=== PATIENT | male | born 1945 | race Caucasian/White ===

== ENCOUNTER 2016-09-27 11:23 | Inpatient (IN) | payer MEDICARE ==
[~2016-09-27] VITALS: Ht 172.7 cm; Wt 88.5 kg
[~2016-09-27 11:23] MED LIST: BAYER CHEWABLE81 MG PO; BENZONATATE200 MG PO; FUROSEMIDE20 MG PO; HYDROCODONE-APA1 TAB PO; K-DUR20 MEQ PO; LIDODERM 5 %1 PATCH TRANSDERM; METOPROLOL TART50 MG PO; MUCINEX DM ER1 EAC1 PO; NORVASC2.5 MG PO; OMEPRAZOLE40 MG PO; PROAIR HFA8.5 GM INH; SYNTHROID25 MCG PO; ULTRAM50 MG PO; ZITHROMAX 500M500 MG PO
[2016-09-27 12:37] LABS: BASOPHILS 0.1 % (0.0-2.0); EOSINOPHILS 1.1 % (0-7); HEMATOCRIT 43.2 % (42.0-54.0); HEMOGLOBIN 14.4 g/dL (13.5-17.5); IMMATURE GRANULOCYTES 0.2 % (0-5); LYMPHOCYTES 15.9 % (15-50); MCH 34.7 pg (26.0-34.0); MCHC 33.3 g/dL (31.0-37.0); MCV 104.1 fL (80.0-100.0); MEAN PLATELET VOLUME 11.7 fL (7.4-10.4); MONOCYTES 7.8 % (2-11); NEUTROPHILS 74.9 % (40-80); RBC 4.15 10x6/uL (4.20-6.10); RDW 11.9 % (11.5-14.5); WBC 8.2 10x3/uL (4.8-10.8)
[2016-09-27 12:38] LABS: PLATELET COUNT 110 10x3/uL (130-400)
[2016-09-27 13:00] LABS: ALBUMIN 2.8 g/dL (3.4-5.0); ALKALINE PHOSPHATASE 100 U/L (46-116); ALT (SGPT) 24 U/L (10-68); BILIRUBIN - TOTAL 0.48 mg/dL (0.2-1.3); CALC OSMOLALITY 280 mosm/kg (275-300); CALCIUM 9.2 mg/dL (8.5-10.1); CHLORIDE - SERUM 102 mmol/L (98-107); CREATININE - SERUM 0.9 mg/dL (0.6-1.3); GLUCOSE 116 mg/dL (74-106); POTASSIUM - SERUM 4.3 mmol/L (3.5-5.1); PROTEIN - SERUM 7.3 g/dL (6.4-8.2); SODIUM 139 mmol/L (136-145); UREA NITROGEN 18 mg/dL (7-18); eGFR NON AFRICAN AMERICAN 88 mL/min (90-120)
[2016-09-27 13:32] LABS: APPEARANCE HAZY (CLEAR); BILIRUBIN NEGATIVE (NEGATIVE); COLOR YELLOW (YELLOW); GLUCOSE NEGATIVE (NEGATIVE); KETONE NEGATIVE (NEGATIVE); LEUKOCYTE ESTERASE 1+ (NEGATIVE); NITRITE NEGATIVE (NEGATIVE); PROTEIN NEGATIVE (NEGATIVE); UROBILINOGEN NORMAL (NORMAL)
[2016-09-27 13:33] LABS: BACTERIA FEW /hpf (NONE SEEN); EPITHELIAL CELLS 0-5 /hpf (0-5); RED CELLS - URINE 0-5 /hpf (0-5)
[2016-09-27 14:14] LABS: UDS - AMPHET NEGATIVE QUAL (NEGATIVE); UDS - BARB NEGATIVE QUAL (NEGATIVE); UDS - BENZO NEGATIVE QUAL (NEGATIVE); UDS - COCAINE NEGATIVE QUAL (NEGATIVE); UDS - METH NEGATIVE QUAL (NEGATIVE); UDS - OPIATE POSITIVE QUAL (NEGATIVE); UDS - PCP NEGATIVE QUAL (NEGATIVE); UDS - THC NEGATIVE QUAL (NEGATIVE)
[2016-09-27 15:35] LABS: BASOPHILS 0.2 % (0.0-2.0); EOSINOPHILS 1.2 % (0-7); HEMATOCRIT 39.5 % (42.0-54.0); HEMOGLOBIN 12.4 g/dL (13.5-17.5); IMMATURE GRANULOCYTES 0.2 % (0-5); MCHC 31.4 g/dL (31.0-37.0); MCV 92.5 fL (80.0-100.0); MEAN PLATELET VOLUME 11.4 fL (7.4-10.4); MONOCYTES 9.5 % (2-11); NEUTROPHILS 74.9 % (40-80); PLATELET COUNT 79 10x3/uL (130-400); RBC 4.27 10x6/uL (4.20-6.10); RDW 15.9 % (11.5-14.5); WBC 5.9 10x3/uL (4.8-10.8)
[2016-09-27 15:59] LABS: PLATELET ESTIMATE DECREASED
[2016-09-27] MEDS ORDERED: HYDROCODONE-APA1 TAB PO (23:37)
--- NOTE | 2016-09-27 23:53 | NUR ---
NORCO 1 TAB GIVEN FOR C/O PAIN TO BACK AND LOWER EXTREMITIES.
[2016-09-28] VITALS: BP 139/68
--- NOTE | 2016-09-28 02:33 | NUR ---
RESTING WITH EYES CLOSED, RESPERATIONS EVEN, NO S/S DISTRESS NOTED.
[2016-09-28 03:03] VITALS: BP 142/71; BMI 29.7
--- NOTE | 2016-09-28 04:31 | NUR ---
FRESH ICE WATE GIVEN AT PT REQUEST.
--- NOTE | 2016-09-28 05:48 | NUR ---
NORCO 1 TAB GIVEN FOR C/O PAIN.
[2016-09-28 05:51] LABS: BASOPHILS 0.2 % (0.0-2.0); EOSINOPHILS 1.6 % (0-7); IMMATURE GRANULOCYTES 0.2 % (0-5); LYMPHOCYTES 15.2 % (15-50); MCH 28.5 pg (26.0-34.0); MCHC 30.8 g/dL (31.0-37.0); MCV 92.6 fL (80.0-100.0); MEAN PLATELET VOLUME 11.7 fL (7.4-10.4); MONOCYTES 10.6 % (2-11); NEUTROPHILS 72.2 % (40-80); PLATELET COUNT 73 10x3/uL (130-400); RBC 4.21 10x6/uL (4.20-6.10); RDW 15.4 % (11.5-14.5); WBC 4.9 10x3/uL (4.8-10.8)
[2016-09-28 05:59] LABS: INR 1.11 (0.85-1.17); PROTIME 14.2 SECONDS (11.6-15.0)
[2016-09-28 06:23] LABS: ALBUMIN 2.9 g/dL (3.4-5.0); ANION GAP 6.4 mmol/L (8-16); BILIRUBIN - TOTAL 0.7 mg/dL (0.2-1.3); C-REACTIVE PROTEIN 2.2 mg/dL (0.0-0.9); CALCIUM 8.1 mg/dL (8.5-10.1); CARBON DIOXIDE 38.1 mmol/L (21.0-32.0); CREATININE - SERUM 1.9 mg/dL (0.6-1.3); POTASSIUM - SERUM 3.5 mmol/L (3.5-5.1); PROTEIN - SERUM 6.2 g/dL (6.4-8.2)
[2016-09-28] MEDS ORDERED: MYRBETRIQ25 MG PO (06:31)
[2016-09-28 07:46] VITALS: BP 132/65
[2016-09-28 11:37] VITALS: BP 110/68
--- NOTE | 2016-09-28 12:51 | NUR ---
PTS NELSON CATHETER LEAKING. CLEANSED PT AND CHANGED OUT LINENS. PT STAT LOCK WAS SOILED. REPLACED AND SECURED IT TO HIS L.INNER THIGH. WILL CONTINUE TO MONITER FOR LEAKAGE. NO FURTHER NEEDS AT THIS TIME. WILL CTM.
[2016-09-28 13:53] VITALS: Ht 172.7 cm; Wt 88.5 kg
--- NOTE | 2016-09-28 14:16 | NUR ---
PT LYING BACK IN BED RESTING QUIETLY. ABOUT TO GET UP TO AMBULATE WITH PHYSICAL THERAPY. PT REQUESTED AND WAS PROVIDED WITH PRN PAIN MEDICATION FOR CHRONIC BACK PAIN AND GENERALIZED ALL OVER PAIN. PT VOICED THANKS. NO FURTHER NEEDS AT THIS TIME. WILL CTM.
[2016-09-28 15:26] VITALS: BP 125/71
--- NOTE | 2016-09-28 18:51 | NUR ---
PT RESTING IN BED QUIETLY WITH EYES CLOSED. RR NONLABORED ON RA. PT DENIES ANY CURRENT PAIN OR NEEDS AT THIS TIME. CL IN REACH. WILL CTM.
[2016-09-28 19:00] VITALS: BP 149/71
--- NOTE | 2016-09-28 20:15 | NUR ---
PT AWAKE, ALERT, ORIENTED, DENIES ANY NEEDS. CONTINUE TO MONITOR CLOSELY. BED LOW, CALL LIGHT IN REACH, SIDE RAILS X 2, HOB 20 DEGREES. PULLED PT UP IN BED REQUESTED.
[2016-09-29] VITALS: BP 138/69
[2016-09-29 04:00] VITALS: BP 142/71
[2016-09-29 08:02] VITALS: BP 146/75
[2016-09-29 10:51] LABS: BASOPHILS 0 % (0.0-2.0); EOSINOPHILS 0.7 % (0-7); HEMATOCRIT 41.3 % (42.0-54.0); HEMOGLOBIN 12.9 g/dL (13.5-17.5); IMMATURE GRANULOCYTES 0.2 % (0-5); LYMPHOCYTES 8.3 % (15-50); MCH 29.2 pg (26.0-34.0); MCHC 31.2 g/dL (31.0-37.0); MCV 93.4 fL (80.0-100.0); MEAN PLATELET VOLUME 10.7 fL (7.4-10.4); MONOCYTES 11.2 % (2-11); NEUTROPHILS 79.6 % (40-80); PLATELET COUNT 83 10x3/uL (130-400); RBC 4.42 10x6/uL (4.20-6.10); RDW 15.6 % (11.5-14.5)
[2016-09-29 11:03] LABS: CALCIUM 8.4 mg/dL (8.5-10.1); CREATININE - SERUM 2.2 mg/dL (0.6-1.3); POTASSIUM - SERUM 3.3 mmol/L (3.5-5.1)
[2016-09-29 11:04] LABS: ANION GAP 8.3 mmol/L (8-16)
[2016-09-29 16:00] VITALS: BP 137/72
--- NOTE | 2016-09-29 19:25 | NUR ---
PT SITTING UP IN BED, LISTENING TO TV. A/O X3. REQUEST A PAIN PILL. C/O GENERALIZED PAIN 03/21. CALL LIGHT WITH IN REACH. WILL CONT. TO MONITOR.
[2016-09-29 20:00] VITALS: BP 115/72
[2016-09-30] VITALS: BP 118/69
--- NOTE | 2016-09-30 00:23 | NUR ---
PT LYING IN BED, EYES CLOSED, RESPIRATIONS EVEN AND UNLABORED. PT IS EASILY ROUSABLE TO VERBAL STIMULI, DENIES ANY NEEDS AT THIS TIME. CONTINUE TO MONITOR CLOSELY. BED LOW, CALL LIGHT IN REACH, SIDE RAILS X 2, HOB 30 DEGREES, BED ALARM ON.
--- NOTE | 2016-09-30 03:41 | NUR ---
PT LYING IN BED ON LEFT SIDE, EYES CLOSED, RESPIRATIONS EVEN AND UNLABORED. CONTINUE TO MONITOR CLOSELY. BED LOW, CALL LIGHT IN REACH, SIDE RAILS X 2, HOB 30 DEGREES.
[2016-09-30 04:00] VITALS: BP 110/65
[2016-09-30 06:08] LABS: BASOPHILS 0.2 % (0.0-2.0); EOSINOPHILS 1.6 % (0-7); HEMATOCRIT 41.9 % (42.0-54.0); HEMOGLOBIN 12.9 g/dL (13.5-17.5); LYMPHOCYTES 14.4 % (15-50); MCH 28.4 pg (26.0-34.0); MCHC 30.8 g/dL (31.0-37.0); MCV 92.3 fL (80.0-100.0); MEAN PLATELET VOLUME 10.9 fL (7.4-10.4); MONOCYTES 11.9 % (2-11); NEUTROPHILS 71.9 % (40-80); PLATELET COUNT 74 10x3/uL (130-400); RBC 4.54 10x6/uL (4.20-6.10); RDW 15.8 % (11.5-14.5); WBC 5.8 10x3/uL (4.8-10.8)
[2016-09-30 06:26] LABS: ANION GAP 7.7 mmol/L (8-16); CALCIUM 8.6 mg/dL (8.5-10.1); CREATININE - SERUM 2.3 mg/dL (0.6-1.3); POTASSIUM - SERUM 3.7 mmol/L (3.5-5.1)
[2016-09-30 08:02] VITALS: BP 111/66
--- NOTE | 2016-09-30 08:25 | NUR ---
PTS NELSON IS LEAKING AND SOILED HIS BED. CLEANED PT UP AND REMOVED NELSON WITH CATHETER BULB FULLY INTACT. PT DOESNT MEET CRITERIA FOR NELSON SO HE WILL NOT BE HAVING ANOTHER ONE REPLACED. PT IS RESTING QUIETLY AND DENIES ANY FURTHER NEEDS AT THIS TIME. CL IN REACH, BED IN LOWEST, SIDE RAILS X2. WILL CTM.
--- NOTE | 2016-09-30 09:30 | NUR ---
PT C/O GENERALIZED PAIN ALL OVER AND IN HIS BACK. REQUESTED AND PROVIDED WITH PRN PAIN MEDICATION. PT HAS VISITOR AT BEDSIDE AND DENIES ANY FURTHER NEEDS. CL IN REACH. WILL CTM.
[2016-09-30 12:14] VITALS: BP 100/60
[2016-09-30] MEDS ORDERED: LEVAQUIN500 MG PO (13:48)
--- NOTE | 2016-09-30 15:52 | NUR ---
Patient Name: AVEL DAVIS Admission Status: ER Accout number: [id number] Admission Date: 09-27-2016 : 1945 Admission Diagnosis:SHORTNESS OF BREATH Attending: ROHINI Current LOS: 3 Anticipated DC Date: 09-30-2016 Planned Disposition: Home with Home Health--[facility] Primary Insurance: [facility] Is the patient Alert and Oriented? Yes * How many steps to enter\exit or inside your home? NONE * PCP DR GAN * Pharmacy [facility] * Preadmission Environment Home with Family * ADLs Partial Dependent * Partial ADLs (Assistance needed) Ambulation Bathing Medication Management * Equipment Bedside Commode Oxygen--HOME PRN USAGE ONLY Rolling Walker Shower Chair Wheelchair * Other Equipment HAND HELD SHOWER NOZEL * List name and contact numbers for known caregivers / representatives who currently or will assist patient after discharge: AMARILYS VALLES AND ZABRINA NAYAK, PT'S SISTERS [phone] * Community resources currently utilized Home Health * Please name any agencies selected above. [facility] * Additional services required to return to the preadmission environment? No * Can the patient safely return to the preadmission environment? Yes * Has this patient been hospitalized within the prior 30 days at any hospital? No Discharge Planning Comments: CM MET WITH PATIENT TO ASSESS DC PLAN/NEEDS. PT STATED HE LIVES AT HOME WITH HIS TWO SISTERS AND THEY ASSIST IN HIS CARE. HE IS LEGALLY BLIND AND STATED HE CAN GET AROUND HIS HOUSE PRETTY WELL. STATED HE MOSTLY USES A ROLLING WALKER WHEN AMBULATING. HIS SISTERS PROVIDE ALL HIS TRANSPORTATION AND WILL DRIVE [place]. PT CURRENTLY HAS HH SERVICES WITH [facility]. HIS HH SERVICES INCLUDE NURSING, PT, OT, ST AND AIDE SERVICES. PT WISHES TO RESUME THOSE HH SERVICES AT [place]. PT VOICED NO NEED FOR ANY DME EQUIPMENT OR SERVICES. DC IMM PRESENTED TO AND EXPLAINED TO PT. PT IS LEGALLY BLIND AND UNABLE TO SIGN, BUT VOICED UNDERSTANDING. CM PLACED CALL TO [facility] TO INFORM OF DC AND FAXED CLINICAL UPDATE TO [facility] TO RESUME HH SERVICES. Barrel Turner: Fabi Adorno, RN
[2016-09-30 16:23] VITALS: BP 124/75
--- NOTE | 2016-09-30 16:42 | NUR ---
Patient Name: AVEL DAVIS Encounter No: [id number] : 1945 Primary Insurance: [employer] Anticipated DC Date: 09-30-2016 Planned Disposition: Home with Home Health External Planned Provider: [facility] DCP follow-up note: JUNIOR PENN SPOKE TO NICK OF [facility], , NOTIFIED OF DISCHARGE HOME TODAY FOR RESUMPTION OF HOME HEALTH CARE. CM FAXED DISCHARGE INFORMATION TO [place] AT [phone]. NO FURTHER DISCHARGE NEEDS IDENTIFIED. Danny Dunlap, CASE MANAGEMENT
--- NOTE | 2016-09-30 17:20 | NUR ---
D/C PTS R.FA PIV WITH JUDIG CDI AND CATHETER TIP FULLY INTACT. REMOVED TELEMETRY. DISCHARGE PAPERS SIGNED AND TEACHING COMPLETED. PT DENIES ANY QUESTIONS OR CONCERNS. CAREGIVER AT BEDSIDE READY FOR TRANSPORT. NO FURTHER NEEDS.
--- NOTE | 2016-10-01 16:40 | EC ---
PATIENT:AVEL DAVIS DATE OF SERVICE: 09/27/16 SEX: M MEDICAL RECORD: [id number] DATE OF : [birth year] LOCATION:D.M2 D.213 AGE OF PATIENT: 71 ADMISSION DATE: 09/27/16 REFERRING PHYSICIAN: INTERPRETING PHYSICIAN: MEHDI NEVAREZ MD ECHOCARDIOGRAM REPORT ECHO CHARGES 4 ECHO COMPLETE CLINICAL DIAGNOSIS: DYSPNEA/CONFUSION HX OF CHF AND HTN ECHOCARDIOGRAPHIC MEASUREMENTS (adult normal given) AC root (d.<3.7cm) 3.7 LV Septum d (<1.2 cm> 1.4 Valve Excursion 1.7 LV Septum (systole) 1.5 Left Atria (s.<4.0cm> 4.0 LVPW d(<1.2cm) 1.5 RV (d.<2.3cm) 3.2 LVPW (sytole) 1.7 LV diastole(<5.6CM) 5.2 MV E-F(>70mm/sec) LV systole 3.4 LVOT Diameter 1.8 MV exc.(>10mm) 2.0 Est.ejection fraction (50-75%) Pericardial Effusion N DOPPLER: LVIT A 90.0 E 103 LA RVSP 33 LVOT 112 AOP1/2T Asc. Ao 209 RVOT 90 RA PA 156 AV Gradient Peak 17.41 AV Mean 7.68 AV Area 1.1 MV Gradient Peak 5.0 MV Mean 2.0 MV Area COMMENTS: Fast Food Cook: Flakito CARLOS Produce Specialist:Lelo Nevarez TAPE# PACS DATE OF SERVICE: 09/28/2016 Echocardiogram FINDINGS: 1. Left ventricular chamber size is within normal limits. Left ventricular systolic function is normal. Overall ejection fraction estimated at 55%. 2. Left atrium, left atrium is upper limits of normal at 4.0 cm. Right atrium and right ventricular chamber sizes are moderately dilated. 3. Valvular structures: Aortic valve demonstrates mild calcific aortic ECHOCARDIOGRAM REPORT [id number] AVEL DAVIS stenosis. Valve area calculates to 1.1 cm-squared and there is a gradient of 17 mm across the valve. The remaining valvular structures have normal structure and motion. 3. Doppler interrogation elsewise reveals mild mitral regurgitation, mild tricuspid regurgitation. No other valvular insufficiency or stenosis. 4. No evidence of pericardial effusion or left ventricular thrombus. TRANSINT:[id number] Voice Confirmation ID: [id number] DOCUMENT ID: [id number] MEHDI NEVAREZ MD at 1640 CC: [id number] DICTATION DATE: 09/29/16 1102 FURS SALESPERSON: 09/29/16 1153 DIS IN 09/30/16 [id number] [place] [address]
--- NOTE | 2016-10-01 16:40 | CN ---
PATIENT NAME:AVEL DAVIS MEDICAL RECORD: [id number] : [birth year] LOCATION:. D.2139 ADMIT DATE: 09/27/16 ACCOUNT: [id number] CONSULTING PHYSICIAN: MEHDI ALANIS MD REFERRING PHYSICIAN: KAPIL NOVA MD DATE OF CONSULTATION: 09/29/2016 Cardiology Consultation DIAGNOSES: 1. Shortness of breath, dyspnea on exertion. 2. Possible pneumonia. 3. Coronary artery disease. 4. Aortic stenosis. 5. Renal insufficiency, [id number]. 6. Paroxysmal atrial fibrillation. 7. Hypertension. HISTORY OF PRESENT ILLNESS: This is a gentleman with a past history of coronary artery disease who presents with shortness of breath, dyspnea on exertion as well as altered mental status. He has not had any chest pain or chest discomfort. He was initially felt to have possible congestive heart failure; however, echocardiogram reveals an ejection fraction of 55%, only mild aortic stenosis with a gradient of only 17 mm across the valve. No other valvular insufficiency or stenosis. His troponin is normal. His EKG has ST-T abnormalities; however, looking at past EKGs, this is not new. PHYSICAL EXAMINATION: GENERAL APPEARANCE: Well-nourished, well-developed, appears stated age. Level of distress, comfortable. PSYCHIATRIC: Mental status, alert, normal affect. Orientation, oriented to time, place and person. EYES: Lids and conjunctiva, noninjected. No discharge, no pallor. ENT: Lips, teeth, gums, normal dentition. Oropharynx, no cyanosis, no pallor. NECK: Carotid arteries, bilateral normal upstroke, no bruits, no thrills. JUGULAR VEINS: No jugular venous pressure or distention. CERVICAL LYMPH NODES: Nontender, nonenlarged. THYROID: Not enlarged. Nontender. No nodules. LUNGS: Respiratory effort, unlabored. CHEST: Normal curvature. No thoracic deformity. No chest wall tenderness. Percussion, resonant. Auscultation, clear. No wheezes, no rales, no rhonchi. CARDIOVASCULAR: Precordial exam, nondisplaced. No heaves or pericardial thrills. Rate and rhythm, regular. Heart sounds, normal S1, normal S2. No S3, no gallop, no rub. Systolic murmur, not heard. Diastolic murmur, not heard. EXTREMITIES: No cyanosis, no edema. Peripheral pulses, full and equal in all extremities, except as noted. No bruits appreciated. ABDOMEN: Soft, nondistended. Normal aorta. No bruit. Nontender. No masses. Liver, nontender, no hepatomegaly. Spleen, nontender, no splenomegaly. MUSCULOSKELETAL: No joint tenderness. No joint swelling. No erythema. NEUROLOGICAL: Normal gait, normal strength, normal tone. SKIN: Warm and dry. REVIEW OF SYSTEMS: The patient reports easy bruising but reports no swollen glands. The patient reports no fever, no night sweats, no significant weight gain, no significant weight loss. No significant exercise tolerance. The CONSULT REPORT [id number] AVEL DAVIS patient reports no dry eyes, no irritation, no vision change. Patient reports no difficulty hearing and no ear pain. Patient reports no frequent nose bleeds or nose and sinus problems. Patient reports on arm pain on exertion. No shortness of breath while lying down. No history of heart murmur. Patient reports no cough, no wheezing or coughing up blood. Patient reports no abdominal pain, no vomiting. Normal appetite. No diarrhea and not vomiting blood. No nausea and no constipation. Patient reports no incontinence. No difficulty urinating. No hematuria. No increased frequency. Patient reports no muscle aches. No weakness, no arthralgias, no back pain. No swelling of the extremities. Patient reports no abnormal mole, no jaundice, no rashes. Reports no loss of consciousness. No weakness and no numbness. No seizures, dizziness, or headaches. The patient reports no depression, no sleep disturbance, feeling safe in a relationship and no alcohol abuse. Patient reports on fatigue. Reports no runny nose or sinus pressure. No itching, no hives, and no frequent sneezing. OVERALL IMPRESSION: Shortness of breath. This is not congestive heart failure with a normal ejection fraction and normal valvular structures and I do not think this is ischemic in nature as his EKG is abnormal, but no changes. Troponin is normal and he has had no chest pain. No other cardiac workup or treatment is necessary. TRANSINT:[id number] Voice Confirmation ID: [id number] DOCUMENT ID: [id number] MEHDI ALANIS MD at 1640 CC: [id number] DICTATION DATE: 09/29/16 1632 COLLEGE ADVISOR: 09/29/16 1713 DIS IN 09/30/16 [facility] [address] [place] [address]
== END 2016-09-30 17:21 | disposition home health service (06) | DRG 291 ==
LOC: D.ER 11:23 → D.M2 15:24
PROVIDERS: Emergency Medicine; ADMIT Family Medicine
DX: I13.0 Hypertensive heart and chronic kidney disease with heart failure and stage 1 through stage 4 chronic kidney disease, or unspecified chronic kidney disease (principal); I50.23 Acute on chronic systolic (congestive) heart failure; J18.9 Pneumonia, unspecified organism; N39.0 Urinary tract infection, site not specified; R41.82 Altered mental status, unspecified; R06.02 Shortness of breath; I25.10 Atherosclerotic heart disease of native coronary artery without angina pectoris; I10 Essential (primary) hypertension; E11.9 Type 2 diabetes mellitus without complications; D69.6 Thrombocytopenia, unspecified; I12.9 Hypertensive chronic kidney disease with stage 1 through stage 4 chronic kidney disease, or unspecified chronic kidney disease; N18.3 Chronic kidney disease, stage 3 (moderate)

== ENCOUNTER → 2016-11-26 12:19 | Outpatient (CLI) | payer MEDICARE ==
[2016-09-28 13:53] VITALS: BMI 29.6
[~2016-11-26 12:19] MED LIST changes: +LEVAQUIN500 MG PO; +MYRBETRIQ25 MG PO
== END | disposition home or self-care (01) ==
LOC: D.LAB 12:19
DX: N40.0 Benign prostatic hyperplasia without lower urinary tract symptoms (principal)

== ENCOUNTER 2017-01-27 05:43 | Day surgery (SDC) | payer MEDICARE ==
[2017-01-26 10:40] LABS: HEMATOCRIT 43.1 % (42.0-54.0); HEMOGLOBIN 13.6 g/dL (13.5-17.5); MCH 29.6 pg (26.0-34.0); MCHC 31.6 g/dL (31.0-37.0); MCV 93.9 fL (80.0-100.0); MEAN PLATELET VOLUME 11.5 fL (7.4-10.4); RBC 4.59 10x6/uL (4.20-6.10); RDW 14.3 % (11.5-14.5); WBC 6.4 10x3/uL (4.8-10.8)
[2017-01-26 10:46] LABS: ANION GAP 8.1 mmol/L (8-16); CARBON DIOXIDE 36.9 mmol/L (21.0-32.0)
[~2017-01-27] VITALS: Ht 172.7 cm; Wt 89.8 kg
[2017-01-27 06:34] VITALS: BP 133/58; Ht 172.7 cm; Wt 89.8 kg
--- NOTE | 2017-01-27 12:36 | OP ---
PATIENT NAME: AVEL DAVIS MEDICAL RECORD: [id number] :[birth year] LOCATION:D.OPS ADMISSION DATE: SURGEON: JOSE NICHOLSON MD DATE OF OPERATION: 01/27/2017 SURGEON: Jose Nicholson MD ANESTHESIA: General anesthesia by Dr. Castillo. PREOPERATIVE DIAGNOSIS: Obstructive benign prostatic hyperplasia. FINDINGS: Bilateral lateral lobe hyperplasia of the prostate with a tight bladder neck. Single ureteral orifices located at a distance away from the bladder neck. No bladder tumors seen. PROCEDURE: Cystoscopy, GreenLight laser transurethral resection of prostate, laser on time was 16 minutes, 42 seconds, total energy was 119,000, 140 joules and power range from 80 to 150 salgado. SPECIMENS: None. COMPLICATIONS: None. ESTIMATED BLOOD LOSS: None. CLINICAL HISTORY: This is a 71-year-old male, who has a long history of diabetes mellitus. He has symptoms of obstructive voiding with slow urine flow, prolonged voiding, frequent voiding. My initially thought, he might have a urethral stricture and when I performed cystoscopy in the office, he was found to have no urethral stricture. The penile urethra was completely normal. He had an obstructive prostate. Going into the bladder, a single ureteral orifices are seen. These are located at some distance from the bladder neck. The bladder neck itself was rather tight. The bladder was mildly trabeculated and no bladder tumors were seen. He comes now to have a GreenLight laser transurethral resection of the prostate. Two grams of Ancef were given to the patient. Anesthesia had initially talked to the patient about giving him a spinal anesthetic. However, upon examining his back, he was found to have a very long incision, covering most of his back from previous spinal surgery. Therefore, he was given general anesthesia instead. DESCRIPTION OF PROCEDURE: Once general anesthetic was given, he was placed in the dorsal lithotomy position and prepped and draped. The patient has a urethral meatal erosion, so that the urethra opens up to the level of the pabon of the glans. The urethra was dilated with male sounds to 32-Liberian. The 28-Liberian laser resectoscope was then introduced. Cystoscopic findings are as described above. We started with 80 salgado at the level of the bladder neck. We could also see the verumontanum clearly. The resection was confined to the tissue between the bladder neck and the verumontanum. First, we carved out the 6 o'clock position to clear out the posterior neely. Then, each of the lateral lobes ____ were taken down to the pseudocapsule. Finally, the anterior overhanging tissue was removed. Towards the end of the procedure as the tissue became more desiccated, we have to increase the power level firmly up to 150 salgado to get good vaporization. At no time did we encounter any arterial bleeding. The procedure was actually extremely dry throughout. At the end of the procedure, the water was turned off and we had a clear channel going from OPERATIVE REPORT [id number] AVEL DAVIS the external urinary sphincter all the way into the bladder neck and with the bladder visible beyond. There was a slight venous bleeding at the bladder neck and this was treated with the laser on the coagulation setting. No further venous or arterial bleeding was seen. The scope was then removed. A 24-Liberian 3-way Stearns catheter was inserted into the bladder. The balloon was inflated with 30 cc of sterile water. A catheter plug was placed into the inflow port of the 3-way Stearns catheter. The remaining port of the Stearns catheter was put to bag drainage. The patient will be going home today. I will see him in followup in the office next week to remove the Stearns catheter. TRANSINT:[id number] Voice Confirmation ID: [id number] DOCUMENT ID: [id number] JOSE NICHOLSON MD at 1236 CC: [id number] DICTATION DATE: 01/27/17 0845 MICROSTRATEGY REPORTS DEVELOPER: 01/27/[address] [facility] [address] [place] [address]
--- NOTE | 2017-01-27 14:54 | NUR ---
1015 IV DC WITH CATHERE TIP INTACT, INSTRUCTED ON CARE OF NELSON TEACHING DONE WITH SISTER STANLEY,
== END 2017-01-27 10:45 | disposition home or self-care (01) ==
LOC: D.OPS 05:43 → D.PAN 07:30 → D.OPS 07:30
PROVIDERS: Anesthesiology
DX: N40.1 Benign prostatic hyperplasia with lower urinary tract symptoms (principal); N13.8 Other obstructive and reflux uropathy; E11.9 Type 2 diabetes mellitus without complications; Z01.812 Encounter for preprocedural laboratory examination

== ENCOUNTER 2017-02-05 08:54 | Inpatient (IN) | payer MEDICARE ==
[~2017-02-05] VITALS: Ht 172.7 cm; Wt 90.5 kg
[2017-02-05 10:02] LABS: APPEARANCE CLOUDY (CLEAR); COLOR DK YELLOW (YELLOW); LEUKOCYTE ESTERASE 2+ (NEGATIVE); SPECIFIC GRAVITY 1.015 (1.005-1.020)
[2017-02-05 10:03] LABS: BACTERIA MANY /hpf (NONE SEEN); BILIRUBIN NEGATIVE (NEGATIVE); GLUCOSE NEGATIVE (NEGATIVE); KETONE NEGATIVE (NEGATIVE); MUCUS <1+ /lpf (NONE SEEN); NITRITE POSITIVE (NEGATIVE); PROTEIN 2+ mg/dL (NEGATIVE); RED CELLS - URINE >50 /hpf (0-5); WHITE CELLS - URINE >50 /hpf (0-5)
[2017-02-05 10:20] LABS: BASOPHILS 0.2 % (0-2); EOSINOPHILS 1.1 % (0-7); HEMATOCRIT 39.1 % (42.0-54.0); HEMOGLOBIN 12.6 g/dL (13.5-17.5); IMMATURE GRANULOCYTES 0.2 % (0-5); LYMPHOCYTES 8.1 % (15-50); MCH 29.3 pg (26.0-34.0); MCHC 32.2 g/dL (31.0-37.0); MCV 90.9 fL (80.0-100.0); MONOCYTES 10.3 % (2-11); NEUTROPHILS 80.1 % (40-80); PLATELET COUNT 100 10x3/uL (130-400); RDW 14.6 % (11.5-14.5); WBC 11.1 10x3/uL (4.8-10.8)
[2017-02-05 10:29] LABS: ANION GAP 12.3 mmol/L (8-16); CALCIUM 8.5 mg/dL (8.5-10.1); CARBON DIOXIDE 31.6 mmol/L (21.0-32.0); CREATININE - SERUM 1.8 mg/dL (0.6-1.3); POTASSIUM - SERUM 4.9 mmol/L (3.5-5.1)
--- NOTE | 2017-02-05 14:12 | NUR ---
PT ARRIVED TO FLOOR, PT WAS INC OF BM CLEANED UP AND LINEN CHANGE. PT IS ALERT AND ORIENTED, BUT BLIND. SIGNS PLACED ON THE DOOR AND WHITEBOARD. WILL ADMIT.
[2017-02-05 14:19] VITALS: BP 145/61; Ht 172.7 cm; Wt 90.5 kg
[2017-02-05] MEDS ORDERED: NORVASC2.5 MG PO (14:19)
[2017-02-05] MEDS ORDERED: PROSCAR5 MG PO (14:19)
[2017-02-05] MEDS ORDERED: FLOMAX0.4 MG PO (14:19)
[2017-02-05 16:00] VITALS: BP 126/61
--- NOTE | 2017-02-05 16:14 | NUR ---
PT PIV WAS INFILTRATED. DC WITH CATH TIP INTACT. TANVI LYON SITED PT TO LEFT FA 22G X1 STICK. SIGNED AND DATED. FLUIDS INFUSING WITHOUT PROBLEMS. PT RESTING WITH EYES CLOSED RR EVEN AND UNLABORED. APPLIED SCDS, PATENT. APPLIED TELE PT RUNNING SINUS LINDEN 57 BPM. WILL CONT TO MONITOR
--- NOTE | 2017-02-05 17:13 | NUR ---
PT SITTING UP IN BED EATING DINNER WILL CONT TO MONITOR
[2017-02-05 19:00] VITALS: BP 125/65
--- NOTE | 2017-02-05 19:30 | NUR ---
RECEIVED REPORT, PT SLEEPING, IV-L. HAND NS @75. [id number], NELSON DRAINING, BUTTOCK-RED. L. SIDE ABDOMEN- DISTENTED, PT IS BLIND, BED IS LOW, SRX2, BED ALARM IS ON, CALL LIGHT IN REACH, WILL CONTINUE PLAN OF CARE
[2017-02-06] VITALS (7 sets, daily range): BP systolic 125–146; BP diastolic 55–69
--- NOTE | 2017-02-06 01:35 | NUR ---
ASSESSMENT COMPLETE, SEE FLOWSHEET, PT SLEEPING ON L.SIDE, BED IS LOW, SRX2, BED ALARM IS ON, CALL LIGHT IN REACH, WILL CONTINUE PLAN OF CARE
[2017-02-06 07:11] LABS: BASOPHILS 0.1 % (0-2); EOSINOPHILS 0.4 % (0-7); HEMATOCRIT 35.6 % (42.0-54.0); HEMOGLOBIN 11.6 g/dL (13.5-17.5); IMMATURE GRANULOCYTES 0.2 % (0-5); LYMPHOCYTES 9.1 % (15-50); MCH 29.6 pg (26.0-34.0); MCHC 32.6 g/dL (31.0-37.0); MCV 90.8 fL (80.0-100.0); MEAN PLATELET VOLUME 11.2 fL (7.4-10.4); MONOCYTES 9.8 % (2-11); NEUTROPHILS 80.4 % (40-80); PLATELET COUNT 88 10x3/uL (130-400); RBC 3.92 10x6/uL (4.20-6.10); RDW 14.6 % (11.5-14.5); WBC 9.2 10x3/uL (4.8-10.8)
--- NOTE | 2017-02-06 07:30 | NUR ---
PT CALLED TO ROOM. PT NELSON HAD LEAKED AND MESSED UP SHEETS AND GOWN. CHANGED PT LINEN AND GAVE A BEDBATH WITH HELP FROM AID. ASSITED WITH SET UP OF BREAKFAST TRAY. REPOSTIONED NELSON TUBING TO KEEP FROM PINCHING OFF AND CAUSING LEAKS. NO C/O PAIN VOICED AT THIS TIME. IV TO LEFT HAND WITH NS @ 75. WILL CONT TO MONITOR.
[2017-02-06 07:33] LABS: ANION GAP 9.6 mmol/L (8-16); CALCIUM 8.4 mg/dL (8.5-10.1); CARBON DIOXIDE 30.6 mmol/L (21.0-32.0); CREATININE - SERUM 1.8 mg/dL (0.6-1.3); POTASSIUM - SERUM 4.2 mmol/L (3.5-5.1)
--- NOTE | 2017-02-06 09:30 | NUR ---
PT REQUESTED PAIN PILL FOR SORNESS IN BACK. GAVE 50MG TRAMADOL WITH AM MEDS.
--- NOTE | 2017-02-06 09:36 | NUR ---
NURSE AT ASSISTING WITH NEEDS. WILL CONT. PLAN OF CARE.
--- NOTE | 2017-02-06 16:10 | NUR ---
PT IS STILL LEAKING OUTSIDE HIS NELSON, SO REPLACED THE NELSON WITH A NEW ONE. USED 18FR. WITH STERILE PROCEDURE. GOT GIO COLOR SMALL AMOUNT OF URINE FOR RETURN. PT TOLERATED WITHOUT PROBLEMS.
--- NOTE | 2017-02-06 17:13 | NUR ---
CHECKED FSBS 120 NO COVERAGE PER SLIDING SCALE. PT REPORTED ALREADY HAVING LEAKING AROUND THE NEW CATHER
--- NOTE | 2017-02-06 19:47 | NUR ---
RESUMED CARE OF PT, LYING IN BED RESPIRATIONS EVEN AND UNLABORED ON ROOM AIR. LEFT HAND INFUSING NS @ 75. 65 SR ON TELEMETRY. FOELY TO GRAVITY. REQUESTS PAIN PILL WITH NIGHT MEDS. CALL LIGHT IN REACH. WILL CONTINUE TO MONITOR. SEE NURSE ASSESSMENT.
--- NOTE | 2017-02-07 02:47 | NUR ---
LYING IN BED WITH EYES CLOSED. CALL LIGHT IN REACH.
[2017-02-07 04:24] VITALS: BP 131/62
--- NOTE | 2017-02-07 06:18 | NUR ---
NO CHANGES FROM PREVIOUS ASSESSMENT, CALL LIGHT IN REACH. WILL CONTINUE TO MONITOR.
[2017-02-07 06:22] LABS: BASOPHILS 0.2 % (0-2); EOSINOPHILS 1.8 % (0-7); HEMATOCRIT 36.1 % (42.0-54.0); HEMOGLOBIN 11.6 g/dL (13.5-17.5); IMMATURE GRANULOCYTES 0.4 % (0-5); LYMPHOCYTES 10.5 % (15-50); MCH 29.4 pg (26.0-34.0); MCHC 32.1 g/dL (31.0-37.0); MCV 91.4 fL (80.0-100.0); MEAN PLATELET VOLUME 11.3 fL (7.4-10.4); MONOCYTES 9.5 % (2-11); NEUTROPHILS 77.6 % (40-80); PLATELET COUNT 94 10x3/uL (130-400); RBC 3.95 10x6/uL (4.20-6.10); RDW 14.3 % (11.5-14.5); WBC 8.5 10x3/uL (4.8-10.8)
[2017-02-07 06:51] LABS: CALCIUM 8.5 mg/dL (8.5-10.1); CARBON DIOXIDE 30.2 mmol/L (21.0-32.0); CREATININE - SERUM 1.7 mg/dL (0.6-1.3); POTASSIUM - SERUM 4.2 mmol/L (3.5-5.1)
--- NOTE | 2017-02-07 07:53 | NUR ---
ASSESSMENT COMPLETED. PT IS BLIND.TELEMERTY SHOWS SR. IV TO LEFT PRINCE WITH NS AT 75. NELSON CATH WITH BLOOD TINGED URINE. NO CLOTS NOTED . URINE IN TUBE CLEAR. FLAMILY CALLED AND UP SET THAT PT IS STILL IN HOSPITAL AND THAT HIS NELSON IN LEAKING. NELSON WAS CHANGED LAST NIGH AND I SEE NO LEAKING.
[2017-02-07 08:09] VITALS: BP 135/66
--- NOTE | 2017-02-07 10:08 | NUR ---
RESTING QUIETLY RESP UNLABORED NAD NOTED
[2017-02-07 11:38] VITALS: BP 130/63
--- NOTE | 2017-02-07 12:52 | NUR ---
LYING QUIETLY. DENIES ANY PAIN. DOES C/O CATH LEAKING. REPOSITIONED CATH AGAIN. WILL MONITOR
[2017-02-07 15:04] LABS: APPEARANCE HAZY (CLEAR); BILIRUBIN NEGATIVE (NEGATIVE); COLOR YELLOW (YELLOW); GLUCOSE NEGATIVE (NEGATIVE); KETONE NEGATIVE (NEGATIVE); LEUKOCYTE ESTERASE 2+ (NEGATIVE); NITRITE NEGATIVE (NEGATIVE); PROTEIN NEGATIVE (NEGATIVE); UROBILINOGEN NORMAL (NORMAL)
[2017-02-07 15:05] LABS: BACTERIA FEW /hpf (NONE SEEN)
[2017-02-07 15:55] VITALS: BP 128/69
--- NOTE | 2017-02-07 17:10 | NUR ---
to private car per wheelchair
--- NOTE | 2017-02-07 18:02 | NUR ---
LYING QUIETLY. NO DISTRESS NOTED. WILL MONITOR
[2017-02-07 19:46] VITALS: BP 124/70
--- NOTE | 2017-02-07 19:52 | NUR ---
RESUMED CARE OF PT, LYING IN BED RESPIRATIONS EVEN AND UNLABORED ON ROOM AIR. RIGHT FOREARM INFUSING NS @ 75. ASSISSTED TO BEDPAN. CALL LIGHT IN REACH. WILL CONTINUE TO MONITOR. SEE NURSE ASSESSMENT.
--- NOTE | 2017-02-07 22:13 | NUR ---
NIGHT MEDS GIVEN, CALL LIGHT IN REACH. WILL CONTINUE TO MONITOR.
[2017-02-07 23:38] VITALS: BP 159/72
--- NOTE | 2017-02-08 01:46 | NUR ---
LYING IN BED WITH EYES CLOSED, CALL LIGHT IN REACH. WILL CONTINUE TO MONTIOR.
[2017-02-08 03:48] VITALS: BP 116/65
--- NOTE | 2017-02-08 06:12 | NUR ---
NO CHANGES FROM PREVIOUS ASSESSMENT, CALL LIGHT IN REACH. BLADDER SPASMS CONTINUE AROUND NELSON.
[2017-02-08 07:42] VITALS: BP 143/78
--- NOTE | 2017-02-08 07:42 | NUR ---
0720-AM ROUNDING DONE WITH PATIENT APPEARING TO BE ALSEEP ON RIGHT SIDE, HOB UP 20 DEGREES. ON ROOM AIR. ON HEART MONITOR SHOWING SB, HR 59. LEFT HAND WITH NS INFUSING AT 75 CC/HR. NELSON CATH PATENT WITH YELLOW URINE, NELSON CATH WAS CHANGED 02/06 PER BOARD DATE. PATIENT IS LEGALLY BLIND PER REPORT. WILL CPOC.
--- NOTE | 2017-02-08 09:59 | NUR ---
UP IN OWN WHEELCHAIR PAST WALKING WITH THERAPY.
[2017-02-08 12:05] VITALS: BP 117/63
[2017-02-08 15:40] VITALS: BP 139/66
--- NOTE | 2017-02-08 16:40 | NUR ---
RESTING ON RIGHT SIDE WITH EYES CLOSED, RESP ARE EVEN AND NON LABORED. NELSON CATH PATENT WITH CLEAR YELLOW URINE SEEN. CALL LIGHT ON CHEST, WILL CPOC.
--- NOTE | 2017-02-08 19:51 | NUR ---
RECEIVED REPORT, PT COMPLAINS OF PAIN, GAVE A TRAMADOL ORDER, BED IS LOW, SRX2, CALL LIGHT IN REACH, WILL CONTINUE PLAN OF CARE
[2017-02-08 20:12] VITALS: BP 109/59
[2017-02-08 23:40] VITALS: BP 149/71
--- NOTE | 2017-02-09 00:52 | NUR ---
ASSESSMENT COMPLETE, SEE FLOWSHEET, PT SLEEPING, BED IS LOW, SRX2, CALL LIGHT IN REACH, WILL CONTINUE PLAN OF CARE
[2017-02-09 03:31] VITALS: BP 139/69
--- NOTE | 2017-02-09 05:56 | NUR ---
DC NELSON ORDER, [id number] COVERAGE NEEDED
[2017-02-09 08:31] VITALS: BP 144/72
--- NOTE | 2017-02-09 11:38 | NUR ---
UP IN BED WITH EYES CLOSED - DENIES ANY NEEDS
[2017-02-09] MEDS ORDERED: SUMYCIN 250250 MG PO (11:56)
[2017-02-09 12:29] VITALS: BP 128/76
--- NOTE | 2017-02-09 15:08 | NUR ---
D/C WITH CAREGIVER PER CAREGIVERS VEHICLE
--- NOTE | 2017-02-09 15:50 | NUR ---
Patient Name: AVEL DAVIS Encounter No: [id number] : 1945 Primary Insurance: [employer] Anticipated DC Date: 02-09-2017 Planned Disposition: Home with Home Health External Planned Provider: [facility] RESUMPTION DISCHARGE PLANNING NOTE: * Is the patient Alert and Oriented? Yes 0 * How many steps to enter\exit or inside your home? NONE 0 * PCP DR. GAN 0 * Pharmacy [facility] * Preadmission Environment Home with Family 0 * ADLs Partial Dependent 0 * Partial ADLs (Assistance needed) Ambulation 0 * Equipment Bedside Commode Oxygen Rolling Walker Shower Chair Wheelchair 0 * Other Equipment HOME OXYGEN NEEDED - UNKNOWN PROVIDER 0 * List name and contact numbers for known caregivers / representatives who currently or will assist patient after discharge: AMARILYS VALLES & ZABRINA NAYAK, SISTERS, 0 * Community resources currently utilized Home Health Private Duty Care 0 * Please name any agencies selected above. PRIVATE PAY CAREGIVER NEEDED [facility] * Additional services required to return to the preadmission environment? No 0 * Can the patient safely return to the preadmission environment? Yes 0 * Has this patient been hospitalized within the prior 30 days at any hospital? No 0 CM MET WITH PT IN ROOM TO DISCUSS DISCHARGE PLANNING AND NEEDS. PT REPORTS LIVING AT HOME PARTIALLY DEPENDENT UPON HIS TWO SISTERS AND PRIVATELY PAID CAREGIVER THAT THEY USE NEEDED AT HOME. PT REPORTS HE IS NO LONGER REQUIRING ASSISTANCE WITH BATH AND TOILETING AND MOSTLY NEEDS HELP WITH WALKING. [facility] HAD STOPPED PRIOR TO HOSPITAL ADMISSION. CM DISCUSSED AVAILABILITY OF HOME HEALTH, REHAB SERVICES AND MEDICAL EQUIPMENT. PT DENIES NEED OF THERAPY SERVICES OR MEDICAL EQUIPMENT, WOULD LIKE HOME HEALTH TO RESUME. CM DISCUSSED HOME HEALTH PHYSICAL THERAPY, PT REPORTS HE HAS GIVEN UP ON WALKING BUT WILL CONSIDER HOME HEALTH THERAPY SERVICES AND WILL SPEAK TO THEM WHEN THEY COME OUT TO THE HOUSE. PT REPORTS HIS CAREGIVER WILL PICK HIM UP FOR DISCHARGE HOME TODAY. IMPORTANT MESSAGE FROM MEDICARE PROVIDED AND EXPLAINED. CM CALLED [facility], , SPOKE TO PATEL AND PROVIDED DISCHARGE INFORMATION FOR RESUMPTION OF CARE. CM FAXED DISCHARGE INFORMATION TO [facility], . NO FURHTER NEEDS NOTED. Danny Dunlap, CASE MANAGEMENT
--- NOTE | 2017-02-10 13:39 | DS ---
PATIENT:AVEL DAVIS :43 MEDICAL RECORD: [id number] DISCHARGE SUMMARY ADMISSION DATE: 02/05/17 DISCHARGE DATE: 02/09/17 DATE OF ADMISSION: 02/05/2017 DATE OF DISCHARGE: 02/09/2017 ADMITTING DIAGNOSES: 1. Urinary tract infection. 2. Leukocytosis. 3. Type 2 diabetes mellitus with hyperglycemia. 4. Chronic kidney disease, stage III. 5. Diabetes mellitus. 6. Noncompliance. 7. Lacunar infarct that is chronic. 8. Congestive heart failure. 9. Hypertension. 10. Systolic congestive heart failure. 11. Thrombocytopenia. HOSPITAL COURSE: This is a 71-year-old white male patient of Dr. Fraire admitted with diagnoses as outlined above. Details are well-outlined in the history of the present illness, H&P. All events, lab procedures, diagnostic testing are well documented in the records. The patient was admitted, Stearns placed, started on IV antibiotics, urine was cultured, placed on Accu-Chek, blood sugar sliding scale insulin, scuds for DVT prophylaxis, PPI for GI prophylaxis. Labs and volumes were closely followed. CT of the abdomen and pelvis on admission showing possible cystitis, multiple nonobstructing stones in both kidneys, please refer to this documented report. CONSULTANTS: Dr. Cristina of infectious disease, Dr. Harding of urology. Dr. Harding had done a TURP procedure on the gentleman about 2 weeks ago. The Stearns catheter was changed during the stay. Then, after being seen by Dr. Harding, it has been removed. Post-void residual was less than 200 cc. He is not having any pain or discomfort. He is stable for dismissal home per Dr. Cristina and Dr. Harding. Dr. Cristina recommends p.o. tetracycline for 7 days. He is afebrile. Vital signs stable. Blood sugar 132 and 122. White count 8.5, hemoglobin 11.6, platelets 94. Sodium 139, potassium 4.2, chloride 103, CO2 of 30, BUN 25, serum creatinine 1.7. Initial urine culture grew Staphylococcus simulans. Please refer to Dr. Cristina's consultation. Repeat urine culture showing a coag negative Staph about 20,000 colony forming units. DIAGNOSES: 1. Urinary tract infection with recent transurethral resection of the prostate and Stearns catheter, leaking catheter. 2. Status post transurethral resection of the prostate. 3. Hematuria. 4. Chronic kidney disease. 5. Thrombocytopenia. 6. Congestive heart failure. DISCHARGE SUMMARY REPORT [id number] AVEL DAVIS 7. Legally blind. 8. Diabetes mellitus. 9. Leukocytosis, resolved. 10. Type 2 diabetes mellitus with hyperglycemia. He is urinating without any difficulty. He will see Dr. Harding in 2-3 weeks. Follow up with house calls. He is dismissed home on 7 days of tetracycline. Greater than 30 minutes was spent on this discharge. TRANSINT:[id number] Voice Confirmation ID: [id number] DOCUMENT ID: [id number] Dictated By: RODNEY JARRELL RN I have interviewed/examined the above patient and agree with these documented findings. HANG MILLER MD at 1339 CC: [id number] DICTATION DATE: 02/09/17 1307 CLIENT CONSULTANT: 02/10/17 1136 DIS IN 02/09/17 [facility] [address] [place] [address]
== END 2017-02-09 17:42 | disposition home health service (06) | DRG 690 ==
LOC: D.ER 08:54 → D.M2 12:18
PROVIDERS: Emergency Medicine; Student in an Organized Health Care Education/Training Program; ADMIT Family Medicine
PROC: 0T9B70Z Drainage of Bladder with Drainage Device, Via Natural or Artificial Opening (ICD-10-PCS; principal; 2017-02-05)
DX: N39.0 Urinary tract infection, site not specified (principal); I13.0 Hypertensive heart and chronic kidney disease with heart failure and stage 1 through stage 4 chronic kidney disease, or unspecified chronic kidney disease; I50.22 Chronic systolic (congestive) heart failure; N18.3 Chronic kidney disease, stage 3 (moderate); E11.22 Type 2 diabetes mellitus with diabetic chronic kidney disease; E11.65 Type 2 diabetes mellitus with hyperglycemia; D69.6 Thrombocytopenia, unspecified; T83.038A Leakage of other urinary catheter, initial encounter; B95.7 Other staphylococcus as the cause of diseases classified elsewhere; Y84.8 Other medical procedures as the cause of abnormal reaction of the patient, or of later complication, without mention of misadventure at the time of the procedure; I25.10 Atherosclerotic heart disease of native coronary artery without angina pectoris; H54.8 Legal blindness, as defined in USA; Z86.73 Personal history of transient ischemic attack (TIA), and cerebral infarction without residual deficits; Z95.1 Presence of aortocoronary bypass graft

== ENCOUNTER → 2017-02-14 17:43 | Outpatient (CLI) | payer MEDICARE ==
[2017-02-05 14:19] VITALS: BMI 30.4
[~2017-02-14 17:43] MED LIST changes: +FLOMAX0.4 MG PO; +PROSCAR5 MG PO; +SUMYCIN 250250 MG PO
[2017-02-14 18:15] LABS: APPEARANCE HAZY (CLEAR); BILIRUBIN NEGATIVE (NEGATIVE); COLOR YELLOW (YELLOW); GLUCOSE NEGATIVE (NEGATIVE); KETONE NEGATIVE (NEGATIVE); LEUKOCYTE ESTERASE 2+ (NEGATIVE); NITRITE NEGATIVE (NEGATIVE); PROTEIN TRACE mg/dL (NEGATIVE); UROBILINOGEN NORMAL (NORMAL)
[2017-02-14 18:17] LABS: RED CELLS - URINE 25-50 /hpf (0-5); WHITE CELLS - URINE >50 /hpf (0-5)
[2017-02-14 18:18] LABS: BACTERIA MODERATE /hpf (NONE SEEN); EPITHELIAL CELLS 0-5 /hpf (0-5)
== END | disposition home or self-care (01) ==
LOC: D.LABREF 17:43
PROVIDERS: Urology
DX: N39.0 Urinary tract infection, site not specified (principal)

== ENCOUNTER → 2017-02-28 19:14 | Outpatient (CLI) | payer MEDICARE ==
[2017-02-05 14:19] VITALS: BMI 30.4
[2017-02-28 21:31] LABS: APPEARANCE HAZY (CLEAR); BILIRUBIN NEGATIVE (NEGATIVE); COLOR YELLOW (YELLOW); GLUCOSE NEGATIVE (NEGATIVE); KETONE NEGATIVE (NEGATIVE); LEUKOCYTE ESTERASE 2+ (NEGATIVE); NITRITE NEGATIVE (NEGATIVE); PROTEIN NEGATIVE (NEGATIVE); SPECIFIC GRAVITY 1.015 (1.005-1.020); UROBILINOGEN NORMAL (NORMAL)
[2017-02-28 21:33] LABS: BACTERIA FEW /hpf (NONE SEEN); EPITHELIAL CELLS OCC /hpf (0-5); WHITE CELLS - URINE 25-50 /hpf (0-5)
[2017-02-28 21:34] LABS: HYALINE CAST RARE /lpf (NONE SEEN)
== END | disposition home or self-care (01) ==
LOC: D.LABREF 19:14
PROVIDERS: Urology
DX: N39.0 Urinary tract infection, site not specified (principal)

== ENCOUNTER 2017-03-13 19:27 | Inpatient (IN) | payer MEDICARE ==
[~2017-03-13] VITALS: Ht 172.7 cm; Wt 90.7 kg
[2017-03-13 20:14] LABS: APPEARANCE TURBID (CLEAR); BILIRUBIN 3+ (NEGATIVE); COLOR DK YELLOW (YELLOW); GLUCOSE NEGATIVE (NEGATIVE); KETONE NEGATIVE (NEGATIVE); LEUKOCYTE ESTERASE 2+ (NEGATIVE); NITRITE NEGATIVE (NEGATIVE); PH 5.5 (5.0-6.0); PROTEIN 1+ mg/dL (NEGATIVE); SPECIFIC GRAVITY 1.015 (1.005-1.020)
[2017-03-13 20:17] LABS: BACTERIA MANY /hpf (NONE SEEN); EPITHELIAL CELLS 0-5 /hpf (0-5); RED CELLS - URINE >50 /hpf (0-5); WHITE CELLS - URINE >50 /hpf (0-5)
[2017-03-13 20:18] LABS: AMORPHOUS SEDIMENT <1+ /lpf (NONE SEEN); GRANULAR CAST OCC /lpf (NONE SEEN); HYALINE CAST OCC /lpf (NONE SEEN)
[2017-03-13 20:24] LABS: BASOPHILS 0.1 % (0-2); EOSINOPHILS 0 % (0-7); HEMATOCRIT 42.1 % (42.0-54.0); HEMOGLOBIN 13.4 g/dL (13.5-17.5); IMMATURE GRANULOCYTES 0.3 % (0-5); LYMPHOCYTES 2.9 % (15-50); MCH 29.8 pg (26.0-34.0); MCHC 31.8 g/dL (31.0-37.0); MCV 93.6 fL (80.0-100.0); MEAN PLATELET VOLUME 11.3 fL (7.4-10.4); MONOCYTES 11.6 % (2-11); NEUTROPHILS 85.1 % (40-80); PLATELET COUNT 84 10x3/uL (130-400); RDW 15.1 % (11.5-14.5)
[2017-03-13 20:42] LABS: ALBUMIN 3.1 g/dL (3.4-5.0); ANION GAP 8.8 mmol/L (8-16); BILIRUBIN - TOTAL 7.56 mg/dL (0.2-1.3); CALCIUM 9.1 mg/dL (8.5-10.1); CARBON DIOXIDE 34.3 mmol/L (21.0-32.0); CREATININE - SERUM 1.8 mg/dL (0.6-1.3); POTASSIUM - SERUM 4.1 mmol/L (3.5-5.1); PROTEIN - SERUM 7.3 g/dL (6.4-8.2)
[2017-03-14 04:29] VITALS: BP 120/60; BMI 30.4
--- NOTE | 2017-03-14 07:30 | NUR ---
YELLING, AGITATED, WANTING WATER, BED LOWEST POSIITON, CALL LIGHT IN REACH, BOX ALARM ON, WILL CONTINUE TO MONITOR
[2017-03-14 09:35] VITALS: BP 145/66
[2017-03-14 09:45] LABS: BASOPHILS 0.1 % (0-2); EOSINOPHILS 0.6 % (0-7); HEMATOCRIT 38.8 % (42.0-54.0); HEMOGLOBIN 12.1 g/dL (13.5-17.5); IMMATURE GRANULOCYTES 0.1 % (0-5); LYMPHOCYTES 7.5 % (15-50); MCH 29.7 pg (26.0-34.0); MCHC 31.2 g/dL (31.0-37.0); MCV 95.3 fL (80.0-100.0); MEAN PLATELET VOLUME 11.8 fL (7.4-10.4); NEUTROPHILS 82.7 % (40-80); PLATELET COUNT 82 10x3/uL (130-400); RBC 4.07 10x6/uL (4.20-6.10); RDW 15.4 % (11.5-14.5)
[2017-03-14 09:46] LABS: WBC 7.2 10x3/uL (4.8-10.8)
[2017-03-14 09:48] LABS: INR 1.06 (0.85-1.17); PROTIME 13.6 SECONDS (11.6-15.0)
[2017-03-14 09:58] LABS: ALBUMIN 2.7 g/dL (3.4-5.0); ANION GAP 9.6 mmol/L (8-16); BILIRUBIN - TOTAL 7.57 mg/dL (0.2-1.3); CALCIUM 8.8 mg/dL (8.5-10.1); CARBON DIOXIDE 35.3 mmol/L (21.0-32.0); CREATININE - SERUM 1.6 mg/dL (0.6-1.3); POTASSIUM - SERUM 3.9 mmol/L (3.5-5.1); PROTEIN - SERUM 6.6 g/dL (6.4-8.2)
[2017-03-14 10:04] LABS: PLATELET ESTIMATE DECREASED
--- NOTE | 2017-03-14 11:30 | NUR ---
PATIENT IN LOW FAGAN POSITION RESTING WITH EYES CLOSED. RESPIRATIONS EVEN AND UNLABORED. SIDE RAILS UP X2. BED IN LOW POSITION. CALL LIGHT IN REACH.
[2017-03-14 11:49] VITALS: BP 146/64
[2017-03-14 13:09] VITALS: Ht 172.7 cm; Wt 90.7 kg
[2017-03-14 16:29] VITALS: BP 140/60
--- NOTE | 2017-03-14 19:00 | NUR ---
PATIENT SUPINE IN BED. HOB 40 DEGREES. AAOX4. RR EVEN AND UNLABORED. 0 S/S OF DISTRESS. DENIES PAIN AT THIS TIME. IV TO LEFT WRIST PATENT WITH NO REDNESS OR SWELLING. BOX ALARM ON. SRX2. BED LOW. CALL LIGHT WITHIN REACH.
[2017-03-14 20:00] VITALS: BP 141/64
--- NOTE | 2017-03-14 22:40 | NUR ---
NIGHTTIME MEDICATION ADMINISTERED. HUMALOG HELD FOR BS OF 125.
[2017-03-15] VITALS: BP 148/59
--- NOTE | 2017-03-15 01:05 | NUR ---
DEMEROL GIVEN FOR PAIN. WILL REASSESS.
[2017-03-15 04:00] VITALS: BP 144/62
[2017-03-15 05:38] LABS: BASOPHILS 0.1 % (0-2); EOSINOPHILS 1.6 % (0-7); HEMATOCRIT 39.2 % (42.0-54.0); IMMATURE GRANULOCYTES 0.3 % (0-5); LYMPHOCYTES 9.2 % (15-50); MCH 29.6 pg (26.0-34.0); MCHC 30.6 g/dL (31.0-37.0); MCV 96.6 fL (80.0-100.0); MEAN PLATELET VOLUME 12.4 fL (7.4-10.4); MONOCYTES 10.8 % (2-11); PLATELET COUNT 83 10x3/uL (130-400); RBC 4.06 10x6/uL (4.20-6.10); RDW 15.5 % (11.5-14.5); WBC 6.9 10x3/uL (4.8-10.8)
[2017-03-15 06:04] LABS: % SATURATION 16 % (15-55); IRON 36 ug/dl (35-150); TOTAL IRON BIND CAPACITY 215 ug/dl (260-445); UNSAT IRON BIND CAPACITY 179 ug/dl (150-375)
[2017-03-15 06:13] LABS: ALBUMIN 2.7 g/dL (3.4-5.0); ANION GAP 8.6 mmol/L (8-16); BILIRUBIN - TOTAL 4.69 mg/dL (0.2-1.3); CARBON DIOXIDE 34.6 mmol/L (21.0-32.0); CREATININE - SERUM 1.7 mg/dL (0.6-1.3); POTASSIUM - SERUM 4.2 mmol/L (3.5-5.1); PROTEIN - SERUM 6.5 g/dL (6.4-8.2)
--- NOTE | 2017-03-15 07:41 | NUR ---
SLEEPING, BREATHING EVEN UNLABORED, CALL LIGHT IN REACH, WILL CONTINUE TO MONITOR
[2017-03-15 09:30] VITALS: BP 147/57
--- NOTE | 2017-03-15 09:30 | NUR ---
PATIENT IN LOW FAGAN POSITION RESTING QUIETLY. RESPIRATIONS EVEN AND UNLABORED. SIDE RAILS UP X2. BED IN LOW POSITION. CALL LIGHT IN REACH.
[2017-03-15 13:54] VITALS: BP 140/54
--- NOTE | 2017-03-15 14:21 | NUR ---
RESTING, DENIES NEEDS, BED LOWEST POSITION, CALL LIGHT IN REACH
[2017-03-15 16:23] VITALS: BP 140/57
--- NOTE | 2017-03-15 19:00 | NUR ---
PATIENT SLEEPING SUPINE IN BED. HOB 20 DEGREES. AROUSES TO VOICE. RR EVEN AND UNLABORED. 0 S/S OF DISTRESS. IV TO LEFT WRIST PATENT WITH NO REDNESS OR SWELLING. BOX ALARM ON. SCD'S IN ROOM BUT OFF. SRX2. BED LOW. CALL LIGHT WITHIN REACH.
[2017-03-15 20:00] VITALS: BP 136/73
--- NOTE | 2017-03-15 22:40 | NUR ---
NIGHTTIME MEDICATIONS ADMINISTERED. HUMALOG HELD FOR BS OF 109.
[2017-03-16] VITALS: BP 149/57
--- NOTE | 2017-03-16 01:50 | NUR ---
DEMEROL GIVEN FOR PAIN OF AN 04/21. WILL REASSESS.
[2017-03-16 04:00] VITALS: BP 136/83
[2017-03-16 05:45] LABS: BASOPHILS 0.2 % (0-2); EOSINOPHILS 2.4 % (0-7); HEMATOCRIT 36.7 % (42.0-54.0); HEMOGLOBIN 11.5 g/dL (13.5-17.5); IMMATURE GRANULOCYTES 0.4 % (0-5); LYMPHOCYTES 12.3 % (15-50); MCH 30.2 pg (26.0-34.0); MCHC 31.3 g/dL (31.0-37.0); MCV 96.3 fL (80.0-100.0); MEAN PLATELET VOLUME 12.2 fL (7.4-10.4); MONOCYTES 10.3 % (2-11); NEUTROPHILS 74.4 % (40-80); PLATELET COUNT 80 10x3/uL (130-400); RBC 3.81 10x6/uL (4.20-6.10); RDW 15.2 % (11.5-14.5)
[2017-03-16 06:02] LABS: WBC 4.6 10x3/uL (4.8-10.8)
[2017-03-16 06:13] LABS: ALBUMIN 2.5 g/dL (3.4-5.0); BILIRUBIN - TOTAL 1.98 mg/dL (0.2-1.3); CALCIUM 8.6 mg/dL (8.5-10.1); CARBON DIOXIDE 32.6 mmol/L (21.0-32.0); CREATININE - SERUM 1.5 mg/dL (0.6-1.3); PROTEIN - SERUM 6.1 g/dL (6.4-8.2)
[2017-03-16 06:15] LABS: ANION GAP 7.9 mmol/L (8-16); POTASSIUM - SERUM 3.5 mmol/L (3.5-5.1)
--- NOTE | 2017-03-16 08:00 | NUR ---
PATIENT IN BED. BED IN LOWEST POSITION, CALL LIGHT IN REACH. BED RAILS UP X'S 2. PATIENT SAID "THE CATHETER LEAKED." PATIENT HAS URINE ON HIS GOWN. CATHETER DRAINING TO GRAVITY. URINE IN COLLECTION BAG. CAMRON VELAZQUEZ, ENTERED ROOM, NOTIFIED HER. SHE SAID SHE WILL TAKE CARE OF IT. PATIENT DENIES NEEDS.
[2017-03-16 08:06] VITALS: BP 150/84
--- NOTE | 2017-03-16 08:13 | NUR ---
SITTING UP IN BED, DENIES NEEDS, BED LOWEST POSITION, CALL LIGHT IN REACH, WILL CONTINUE TO MONITOR
[2017-03-16 12:27] VITALS: BP 177/70
--- NOTE | 2017-03-16 14:39 | NUR ---
TRIED TO START IV, X'S 2 UNSUCCESSFUL ATTEMPTS.
[2017-03-16 15:52] VITALS: BP 128/71
[2017-03-16 20:00] VITALS: BP 160/81
[2017-03-17] VITALS: BP 153/65
--- NOTE | 2017-03-17 01:18 | NUR ---
1930) REC'D. SITTING UP IN BED YELLING AM I HER BY MYSELF.PT. STATES HOW YOU GET IN HERE I NEED TO GET BACK TO THE HOSPITAL.INFORMED YOU ARE IN HOSPITAL WE SPEAK,BOX ALARM REAPPLIED REPOSITIONED IN BED.WILL CONTINUE TO MONITOR FOR ANY CHGES. IN NEURO STATUS AND FOLLOW CURRENT PLAN OF CARE.
[2017-03-17 04:00] VITALS: BP 160/78
[2017-03-17 05:30] LABS: BASOPHILS 0.2 % (0-2); EOSINOPHILS 2.5 % (0-7); HEMATOCRIT 38.5 % (42.0-54.0); HEMOGLOBIN 11.9 g/dL (13.5-17.5); IMMATURE GRANULOCYTES 0.2 % (0-5); LYMPHOCYTES 13.6 % (15-50); MCH 29.5 pg (26.0-34.0); MCHC 30.9 g/dL (31.0-37.0); MCV 95.5 fL (80.0-100.0); MEAN PLATELET VOLUME 11.9 fL (7.4-10.4); MONOCYTES 9.8 % (2-11); NEUTROPHILS 73.7 % (40-80); PLATELET COUNT 95 10x3/uL (130-400); RBC 4.03 10x6/uL (4.20-6.10); RDW 14.7 % (11.5-14.5); WBC 4.4 10x3/uL (4.8-10.8)
[2017-03-17 06:06] LABS: ALBUMIN 2.7 g/dL (3.4-5.0); ANION GAP 11.5 mmol/L (8-16); BILIRUBIN - TOTAL 1.6 mg/dL (0.2-1.3); CALCIUM 8.6 mg/dL (8.5-10.1); CARBON DIOXIDE 29.2 mmol/L (21.0-32.0); CREATININE - SERUM 1.5 mg/dL (0.6-1.3); POTASSIUM - SERUM 3.7 mmol/L (3.5-5.1); PROTEIN - SERUM 6.3 g/dL (6.4-8.2)
--- NOTE | 2017-03-17 07:40 | NUR ---
ASSESSMENT PER FLOW SHEET.PT WITHOUT DISTRESS.BRUISES NOTED TO BILATERAL ARMS.FALL PREVENTION IN PLACE WITH BOX ALARM.YELLOW BAND PLACED ON PT.DOOR OPEN TO MONITOR
[2017-03-17 08:26] VITALS: BP 169/77
[2017-03-17 10:15] LABS: ANA REFLEX - DIRECT Negative (Negative); HEPATITIS C ANTIBODY <0.1 (0.0-0.9)
[2017-03-17] MEDS ORDERED: LEVAQUIN250 MG PO (10:53)
[2017-03-17 11:14] LABS: ALPHA FETOPROTEIN -(TUMOR MRK) 0.9 ng/mL (0.0-8.3)
--- NOTE | 2017-03-17 12:00 | NUR ---
NELSON DCD WITH 1000 CC OF URINE IN BAG.URINAL PROVIDED TO PT.
--- NOTE | 2017-03-17 12:01 | NUR ---
Patient Name: AVEL DAVIS Admission Status: ER Accout number: [id number] Admission Date: 03-14-2017 : 1945 Admission Diagnosis:CHOLANGITIS Attending: ARIAN Current LOS: 3 Anticipated DC Date: Planned Disposition: Home with Home Health Primary Insurance: [facility] Discharge Planning Comments: CM met with patient to assess discharge planning needs. Patient states that he currently lives at home with 2 sisters where he has lived with for a long time. He plans to discharge home back there. He states that he has House calls coming to his home along with Saraavnan (a helper) who takes him to his Drs appointments, grocery store, shopping, helps him and his sisters with whatever they need. He said he has had HH in the past ([facility]) and was not happy with them at all and would like to try someone else. He refused going to SNF and said every time he gets better they have to stop coming. He was not opposed to a in patient rehab if that was as option but just wanted to TALK about it. CM has a call into Keith Garcia ([phone]) with [facility] to discuss options Argenis CAMP stated that this is the patients baseline. Will continue to assist with discharge planning needs PCP: [facility] Pharmacy: Nena Mathews [phone] (sister) Under Ground Miner: Rima Escamilla * Is the patient Alert and Oriented? Yes 0 * How many steps to enter\exit or inside your home? 0 0 * PCP de 0 * Pharmacy nena 0 * Preadmission Environment Home with Family 0 * ADLs Partial Dependent 0 * Partial ADLs (Assistance needed) Medication Management 0 * Equipment Bedside Commode Cane Elevated Toliet Seat Oxygen Shower Chair Walker Wheelchair 0 * List name and contact numbers for known caregivers / representatives who currently or will assist patient after discharge: MAG MATHEWS ([phone]) SISTER 0 * Community resources currently utilized None Other Private Duty Care 0 * Please name any agencies selected above. HOUSE CALLS ALEXIS (HELPER) 0 * Additional services required to return to the preadmission environment? Yes 0 * Can the patient safely return to the preadmission environment? Yes 0 * Has this patient been hospitalized within the prior 30 days at any hospital? Yes 0 Grand Total: 0
--- NOTE | 2017-03-17 13:00 | NUR ---
PT HAS VOIDED 200CC IN URINAL
--- NOTE | 2017-03-17 13:27 | NUR ---
[facility] SET UP FOR PATIENT AND WILL BE THERE ON TUESDAY. SISTER AND CAREGIVER NOTIFIED OF DISHCARGE ARRANGEMENTS. CM WILL CONTINUE TO ASSIST
--- NOTE | 2017-03-17 14:09 | NUR ---
BEL (CAREGIVER) HERE AT BEDSIDE WILL BE TAKING PATIENT HOME IN PERSONAL CAR
--- NOTE | 2017-03-17 15:11 | NUR ---
V DCD WITH CATH INTACT.DISCHARGE INSTRUCTIONS WITH PT AND CAREGIVER.LEFT UNIT VIA WHEELCHAIR FOR TRANSPORT HOME
[2017-03-18 14:19] LABS: SMOOTH MUSCLE ABS (ACTIN) 16 Units (0-19)
== END 2017-03-17 15:11 | disposition home health service (06) | DRG 444 ==
LOC: D.ER 19:27 → D.MS 03-14 03:05
PROVIDERS: Emergency Medicine; Internal Medicine Gastroenterology; ADMIT Family Medicine
DX: K83.0 Cholangitis (principal); G93.41 Metabolic encephalopathy; J90 Pleural effusion, not elsewhere classified; I13.0 Hypertensive heart and chronic kidney disease with heart failure and stage 1 through stage 4 chronic kidney disease, or unspecified chronic kidney disease; I50.22 Chronic systolic (congestive) heart failure; N39.0 Urinary tract infection, site not specified; E11.40 Type 2 diabetes mellitus with diabetic neuropathy, unspecified; E11.65 Type 2 diabetes mellitus with hyperglycemia; I10 Essential (primary) hypertension; I25.10 Atherosclerotic heart disease of native coronary artery without angina pectoris; H91.90 Unspecified hearing loss, unspecified ear; H54.8 Legal blindness, as defined in USA; E03.9 Hypothyroidism, unspecified; E11.22 Type 2 diabetes mellitus with diabetic chronic kidney disease; N18.3 Chronic kidney disease, stage 3 (moderate); Z91.19 Patient's noncompliance with other medical treatment and regimen

== ENCOUNTER → 2017-04-13 20:40 | Outpatient (CLI) | payer MEDICARE ==
[2017-03-14 13:09] VITALS: BMI 30.4
[~2017-04-13 20:40] MED LIST changes: +LEVAQUIN250 MG PO
[2017-04-13 21:47] LABS: ALBUMIN 3.4 g/dL (3.4-5.0); BILIRUBIN - DIRECT 0.67 mg/dL (0.00-0.30); BILIRUBIN - TOTAL 1.15 mg/dL (0.2-1.3); CALCIUM 8.2 mg/dL (8.5-10.1); CREATININE - SERUM 1.9 mg/dL (0.6-1.3)
== END | disposition home or self-care (01) ==
LOC: D.LABREF 20:40
PROVIDERS: Family Medicine
DX: K83.0 Cholangitis (principal)

== ENCOUNTER 2017-06-15 18:32 | Inpatient (IN) | payer MEDICARE ==
[2017-06-15 20:33] LABS: BASOPHILS 0.1 % (0-2); EOSINOPHILS 0.5 % (0-7); HEMOGLOBIN 13.5 g/dL (13.5-17.5); IMMATURE GRANULOCYTES 0.1 % (0-5); LYMPHOCYTES 6.8 % (15-50); MCH 28.9 pg (26.0-34.0); MCV 96.4 fL (80.0-100.0); MEAN PLATELET VOLUME 11.8 fL (7.4-10.4); MONOCYTES 9.2 % (2-11); NEUTROPHILS 83.3 % (40-80); PLATELET COUNT 98 10x3/uL (130-400); RBC 4.67 10x6/uL (4.20-6.10); RDW 15.6 % (11.5-14.5); WBC 7.9 10x3/uL (4.8-10.8)
[2017-06-15 20:48] LABS: ALBUMIN 3.6 g/dL (3.4-5.0); ANION GAP 5.8 mmol/L (8-16); CALCIUM 8.9 mg/dL (8.5-10.1); CARBON DIOXIDE 39.4 mmol/L (21.0-32.0); CREATININE - SERUM 1.9 mg/dL (0.6-1.3); POTASSIUM - SERUM 4.2 mmol/L (3.5-5.1); PROTEIN - SERUM 7.4 g/dL (6.4-8.2)
[2017-06-15 20:56] LABS: MAGNESIUM - SERUM 2.5 mg/dL (1.8-2.4); THYROID STIMULATING HORMONE 0.54 uIU/mL (0.36-3.74)
[2017-06-15 20:57] LABS: PLATELET ESTIMATE DECREASED
[2017-06-16] VITALS (65 sets, daily range): BP systolic 82–176; BP diastolic 48–79; BMI 35.4; BMI 35.2
[2017-06-16 01:38] LABS: APPEARANCE HAZY (CLEAR); BILIRUBIN NEGATIVE (NEGATIVE); COLOR DK YELLOW (YELLOW); GLUCOSE NEGATIVE (NEGATIVE); KETONE NEGATIVE (NEGATIVE); NITRITE NEGATIVE (NEGATIVE); PROTEIN TRACE mg/dL (NEGATIVE)
[2017-06-16 01:40] LABS: EPITHELIAL CELLS 0-5 /hpf (0-5); RED CELLS - URINE 0-5 /hpf (0-5)
[2017-06-16 01:41] LABS: BACTERIA FEW /hpf (NONE SEEN); HYALINE CAST 0-5 /lpf (NONE SEEN); MUCUS <1+ /lpf (NONE SEEN)
[2017-06-16 01:45] LABS: UDS - AMPHET NEGATIVE QUAL (NEGATIVE); UDS - BARB NEGATIVE QUAL (NEGATIVE); UDS - BENZO NEGATIVE QUAL (NEGATIVE); UDS - COCAINE NEGATIVE QUAL (NEGATIVE); UDS - OPIATE NEGATIVE QUAL (NEGATIVE); UDS - PCP NEGATIVE QUAL (NEGATIVE); UDS - THC NEGATIVE QUAL (NEGATIVE)
--- NOTE | 2017-06-16 02:53 | NUR ---
PT ADMIT TO ICU VIA HOSPITAL STAFF. PIV TO L FLETCHER INFUSING NS @ 125 ML/HR. RR 12, SHALLOW, NC @ 2 L/MIN, O2 SAT 97%. V/S: TEMP 98, ORAL; HR 64 NORMAL SINUS, BP 101/64 NIBP. HE IS IN NO SIGN OF ACUTE DISTRESS. HE IS ALERT TO PERSON, BUT UNABLE TO STATE WHERE HE IS OR THE SITUATION. REORIENTS EASILY. BLIND IN BOTH EYES AND LEVELOCK. HE STATES THAT HE WEARS HEARING AIDS, BUT HE SAYS HE DOES NOT HAVE THEM WITH HIM. CHEST HAS MIDLINE SCAR, BILAT ARMS AND HANDS HAVE MULTIPLE SKIN TEARS AND BRUISES. ABD IS ROUND AND SOFT, NON TENDER TO TOUCH, BS ACTIVE X4. NELSON CATH INTACT DRAINING CONCENTRATED URINE. RADIAL AND PEDAL PULSES PALP. REPOSITONED FOR COMFORT. BIPAP MACHINE AT BEDSIDE. BED IN LOWEST POSITON, CALL LIGHT IN REACH. WILL CONT WITH POC.
[2017-06-16] MEDS ORDERED: TOPROL XL50 MG PO (03:40)
--- NOTE | 2017-06-16 05:30 | NUR ---
DELIVERED JELLO AND PUDDING PER REQUEST. PT ATE 100% OF SNACK. BACK ON BIPAP @ 30%. WILL CONT WITH POC. VSS.
--- NOTE | 2017-06-16 06:46 | NUR ---
PT SISTER CALLED. UPDATED HER ON PT'S STATUS. NO FURTHER REQUESTS. WILL CONT WITH POC.
--- NOTE | 2017-06-16 07:00 | NUR ---
REPORT REVIEVED FROM OFF GOING NURSE. SEE FLOW SHEET FOR ASSESSMENT. PT HAS TRANSFER ORDER BUT WAITING FOR A ROOM TO OPEN. PT DENIES PAIN. RIGHT WRIST IV C/D/I. PT ABD HAS A RED RASH NOTED. USED MARKER AND MIGUEL AROUND THE OUTLINE TO MESSURE IF IT IS SPEADING. O2 AT 2L VIA NC. BREATHING NORMAL AND UNLABORED. CALL LIGHT IN REACH. WILL CONT POC
--- NOTE | 2017-06-16 07:00 | NUR ---
REPORT RECIEVED FROM OFF GOING NURSE.
[2017-06-16 07:15] LABS: BASOPHILS 0.2 % (0-2); EOSINOPHILS 1.3 % (0-7); HEMATOCRIT 41.9 % (42.0-54.0); HEMOGLOBIN 12.6 g/dL (13.5-17.5); IMMATURE GRANULOCYTES 0.2 % (0-5); LYMPHOCYTES 10.6 % (15-50); MCH 28.8 pg (26.0-34.0); MCHC 30.1 g/dL (31.0-37.0); MCV 95.7 fL (80.0-100.0); MEAN PLATELET VOLUME 11.6 fL (7.4-10.4); MONOCYTES 10.7 % (2-11); RBC 4.38 10x6/uL (4.20-6.10); RDW 15.9 % (11.5-14.5); WBC 6.3 10x3/uL (4.8-10.8)
[2017-06-16 07:19] LABS: PLATELET COUNT 77 10x3/uL (130-400)
--- NOTE | 2017-06-16 07:30 | NUR ---
PT IN BED RESTING WITH EYES CLOSED. ATTEMPTED TO ARROUSE TO ASSESS LOC AND PT WOULD MOMENTARLY OPEN EYES BUT CLOSE THEM SHORTLY AFTER AND WOULD NOT FOLLOW COMMANDS. HEART RATE WOULD BE 68 AND THEN DRASTICLY CHANGE TO 45 AND SLOWLY RISE. BP NORMAL. OBTAINED EKG. SINUS BRADYCARDIA WITH A LEFT BUNDLE BRANCH BLOCK. PT BREATHING SHALLOW BUT NORMAL. AWAITING LAB RESULTS.
[2017-06-16 07:42] LABS: ALBUMIN 3.2 g/dL (3.4-5.0); ALKALINE PHOSPHATASE 91 U/L (46-116); ALT (SGPT) 19 U/L (10-68); BILIRUBIN - TOTAL 0.78 mg/dL (0.2-1.3); CALC OSMOLALITY 291 mosm/kg (275-300); CALCIUM 8.5 mg/dL (8.5-10.1); CARBON DIOXIDE 36.8 mmol/L (21.0-32.0); CHLORIDE - SERUM 102 mmol/L (98-107); CREATININE - SERUM 1.9 mg/dL (0.6-1.3); GLUCOSE 117 mg/dL (74-106); PROTEIN - SERUM 7.1 g/dL (6.4-8.2); SODIUM 143 mmol/L (136-145); UREA NITROGEN 29 mg/dL (7-18); eGFR NON AFRICAN AMERICAN 37 mL/min (90-120)
[2017-06-16 07:43] LABS: POTASSIUM - SERUM 3.5 mmol/L (3.5-5.1)
[2017-06-16 07:58] LABS: CKMB 1.8 U/L (0.0-3.6); CREATINE KINASE 69 UL (21-232)
--- NOTE | 2017-06-16 08:00 | NUR ---
LAB RESULTS RECIEVED. CO2 105 WITH A PH OF 7.161. NOTIFIED AND RECIEVED ORDERS TO INTUBATE. PT'S SISTER CALLED WHO IS MEDICAL POA AND MADE AWARE OF SITUATION. RECIEVED PREMISSION TO INTUBATE.
[2017-06-16 08:09] LABS: TROPONIN-I 0.198 ng/mL (0.000-0.060)
--- NOTE | 2017-06-16 08:53 | NUR ---
DR RUVALCABA AT BED SIDE GAVE VERBAL ORDER FOR VERSED IV. 2MG OF VERSED GIVEN VIA LEFT FLETCHER IV. 8ET TUBE INSERTED 26 AT THE LIP. VENT AC RATE 16 TITAL VOL 600, PEEP 5 AND FIO2 40%. CHEST EXPAINSION SYMETRIAL WITH EACH BREATH. LUNGS CLEAR TO ASCULTATION. SOFT RESTRAINTS TO BILATERAL WRIST PER ORDERS. PT TOLERATED ETT PLACEMENT WELL. MD REMAINED AT BEDSIDE WITH ORDERS TO PLACE CVL.
--- NOTE | 2017-06-16 09:00 | NUR ---
SISTER (BING NAYAK) CALLED AND RECIEVED VERBAL CONCENT FOR CVL PLACEMENT. KATHRYN BY CHARGE NURSE. ASSISTED DR RUVALCABA WITH CVL PLACEMENT TO RIGHT SUBCLAVIAN. DRESSING C/D/I. ALL LINES PATENT. PT TOLERATED PROCEDURE WELL WILL CONT POC.
--- NOTE | 2017-06-16 10:12 | NUR ---
PATIENT IS ON THE VENT AND UNABLE TO ANSWER ANY QUESTIONS AT THIS TIME. THERE IS NO FAMILY PRESENT AT THIS TIME TO INTERVIEW. CM TO FOLLOW.
--- NOTE | 2017-06-16 10:30 | NUR ---
PT HEART RATE 48 AND BP DROPPING LOW SBP 80'S. DR VANN VERBAL ORDERS FOR ATROPINE AND DOPAMINE DRIP. BP 120/68 AND HEART RATE 68 AND STABLE. CURRENT DOSE 2MCG/KG/MIN OF DOPAMINE AND 30MG OF DIPROVAN. PT SEDATED. VSS.
--- NOTE | 2017-06-16 10:49 | NUR ---
REPORT CALLED TO RAMBO ON MED SURG. MOVING TO ROOM 2224. ALL BELONGINGS ACCOUNTED FOR. LEFT VIA W/C WITH O2 AT 2L WITH O2 TANK. DENIES BREATHING NORMAL AND UNLABORED. DENIES PAIN. RAMBO RECIEVED PT IN A STABLE CONDINTION.
--- NOTE | 2017-06-16 11:30 | NUR ---
OGT PLACED PER ORDRES PLACEMENT CHECKED VIA ASCULTATION AND ASPIRATION.
--- NOTE | 2017-06-16 12:00 | NUR ---
PT REPOSITION FOR COMFORT. NO CHANGES IN CONDITION. CALL LIGHT IN REACH. WILL CONT POC
--- NOTE | 2017-06-16 15:00 | NUR ---
REMAINS ON VENILATOR. DOPAMINE 2MCG/KG/MIN, DIPROVAN 30MCG/KG/MIN AND 1/2NS D5W AT 75ML/H. NO CHANGES IN CONDITION. VSS. BREADYCARDIC AT 59. CALL LIGHT IN REACH. REPOSITIONED. WILL CONT POC
[2017-06-16 17:44] LABS: CKMB 2.6 U/L (0.0-3.6)
[2017-06-16 17:46] LABS: CREATINE KINASE 305 UL (21-232)
[2017-06-16 17:47] LABS: TROPONIN-I 0.161 ng/mL (0.000-0.060)
--- NOTE | 2017-06-16 19:45 | NUR ---
SHIFT ASSESSMENT COMPLETE. PT IS SEDATED AND DOES NOT RESPOND TO VERBAL STIMULI. PERRLA, 3 MM BRISK REACTION TO LIGHT. VENT SETTINGS: A/C RATE 16, TIDAL VOLUME 600, FIO2 40%, PEEP 5.0, O2 SAT 98% ETT SIZE 8.0, 26 LIP LINE. RT SUBCLAVIAN CVL INFUSING PROPOFOL @ 30 MCG/KG/MIN, D5 1/2 NS @ 75 ML/HR AND DOPAMINE @ 4 MCG/KG/MIN. V/S T 98.2, AXILLARY, HR 51 SINUS LINDEN, BP 130/77, CVP ZEROED, READING 7. S1S2 AUDIBLE, LUNG SOUNDS CLEAR THROUGHOUT ALL LOBES. ABD DISTENDED, BS ACTIVE X4. NELSON CATH INTACT DRAINING CONCENTRATED DARK URINE. RADIAL AND PEDAL PULSES PALP. SKIN TEARS NOTED BILAT HANDS, BUE BRUISES. ORAL CARE PROVIDED, BED IN LOWEST POSITION. WILL CONT WITH POC.
--- NOTE | 2017-06-16 21:20 | NUR ---
ORAL CARE PROVIDED, REPOSITIONED FOR COMFORT. TITRATED DOPAMINE TO 3 MCG/KG/MIN. VSS. WILL CONT WITH POC.
[2017-06-16 22:49] LABS: CKMB 1.6 U/L (0.0-3.6); CREATINE KINASE 307 UL (21-232)
[2017-06-16 22:50] LABS: TROPONIN-I 0.211 ng/mL (0.000-0.060)
--- NOTE | 2017-06-16 23:00 | NUR ---
REASSESSMENT COMPLETE. HR 47 BPM, SINUS LINDEN. BP 122/64, DOPAMINE @ 3.5 MCG/KG/MIN. TUBE FEED INCREASED BY 10 ML AND IS NOW RUNNING AT 20 ML/HR WITH Q 1 HR FLUSH OF 30 ML. ZERO RESIDUAL. CVP READING 6. ORAL CARE PROVIDED. REPOSITIONED FOR COMFORT. WILL CONT WITH POC.
[2017-06-17] VITALS (60 sets, daily range): BP systolic 94–137; BP diastolic 49–92
--- NOTE | 2017-06-17 01:00 | NUR ---
ORAL CARE PROVIDED. REPOSITIONED FOR COMOFRT. VSS. DOPAMINE TITRATED DOWN TO 3 MCG/KG/MIN. WILL CONT WITH POC.
--- NOTE | 2017-06-17 03:30 | NUR ---
REASSESSMENT COMPLETE. VSS. NO CHANGES NOTED. ORAL CARE PROVIDED. REPOSITIONED FOR COMFORT. BED IN LOWEST POSITION. WILL CONT WITH POC.
--- NOTE | 2017-06-17 05:28 | NUR ---
ORAL CARE PROVIDED. REPOSITIONED FOR COMFORT. VSS. NO CHANGES NOTED. PT DOES GRIMICE WHEN PROVIDING ORAL CARE. CALL LIGHT IN REACH. BED IN LOWEST POSITION. SCD'S ON. WILL CONT WITH POC.
[2017-06-17 05:47] LABS: BASOPHILS 0.1 % (0-2); EOSINOPHILS 1.6 % (0-7); HEMATOCRIT 36.1 % (42.0-54.0); HEMOGLOBIN 11.5 g/dL (13.5-17.5); IMMATURE GRANULOCYTES 0.3 % (0-5); LYMPHOCYTES 9.1 % (15-50); MCH 28.5 pg (26.0-34.0); MCHC 31.9 g/dL (31.0-37.0); MEAN PLATELET VOLUME 12.1 fL (7.4-10.4); MONOCYTES 9.7 % (2-11); NEUTROPHILS 79.2 % (40-80); RBC 4.04 10x6/uL (4.20-6.10); RDW 14.9 % (11.5-14.5)
--- NOTE | 2017-06-17 06:15 | NUR ---
NELSON CARE PROVIDED. FAMILY NOW AT BEDSIDE. UPDATED THEM ON PT'S CONDITION. WILL CONT WITH POC.
[2017-06-17 06:21] LABS: MCV 89.4 fL (80.0-100.0); PLATELET COUNT 99 10x3/uL (130-400); WBC 7.9 10x3/uL (4.8-10.8)
[2017-06-17 06:45] LABS: ALBUMIN 2.9 g/dL (3.4-5.0); ALKALINE PHOSPHATASE 66 U/L (46-116); ALT (SGPT) 14 U/L (10-68); CALC OSMOLALITY 294 mosm/kg (275-300); CALCIUM 8.4 mg/dL (8.5-10.1); CARBON DIOXIDE 27.9 mmol/L (21.0-32.0); CHLORIDE - SERUM 105 mmol/L (98-107); CKMB 0.8 U/L (0.0-3.6); CREATINE KINASE 227 UL (21-232); CREATININE - SERUM 1.5 mg/dL (0.6-1.3); GLUCOSE 166 mg/dL (74-106); PROTEIN - SERUM 6.1 g/dL (6.4-8.2); SODIUM 143 mmol/L (136-145); UREA NITROGEN 30 mg/dL (7-18); eGFR NON AFRICAN AMERICAN 49 mL/min (90-120)
[2017-06-17 06:46] LABS: TROPONIN-I 0.183 ng/mL (0.000-0.060)
--- NOTE | 2017-06-17 08:30 | NUR ---
DOPAMINE TITRATED OFF.
--- NOTE | 2017-06-17 09:25 | NUR ---
SISTER AT BEDSIDE. PASSWORD OF GREEN SET UP.
--- NOTE | 2017-06-17 20:00 | NUR ---
2000: Pt cardiac rhythm regular 60 bpm. P-Wave not identified. K+ noted. Ordered K+ level check. Pt Cr <2.0 with AM Lab.
--- NOTE | 2017-06-17 20:10 | NUR ---
2010: OGT position confirmed with 30 cc air bolus and auscultation. Residual Volume <5cc ret'd. Increased TF to goal rate of 45 cc/hr.
--- NOTE | 2017-06-17 20:20 | NUR ---
2020: K+ level ret'd critical low. Electrolyte protocol intiated at this time. KCL 20mEQ IVx3 over 6 hours total via CVL started.
[2017-06-18] VITALS (24 sets, daily range): BP systolic 97–143; BP diastolic 48–79
--- NOTE | 2017-06-18 | NUR ---
0000: Pt remains in bed with eyes closed. Pt does not respond to verbal stimulit at this time. Pt does moves extrem weakly with increased stimuli. Continue to titrate Diprivan at this time. Pt remains SR 60's on CM with SBP increased from 100's to 120's with lowering of sedation. KCL+ continues to infuse via CVL at 10 mEQ/hr.
--- NOTE | 2017-06-18 01:30 | NUR ---
0130: Complete bath and linen change done with Hibiclens. Stearns care, SCD care, and oral care completed as well. Pt did not respond to verbal stimuli, but grimmaces with movement. Multiple small skin tears noted to bilateral upper extrem. No bleeding noted. Pt repositioned for comfort with extrem off bed with pillow support.
--- NOTE | 2017-06-18 03:45 | NUR ---
0345: Continue to titrate sedation. Pt remains sedated and does not open eyes or follow commands. Pt remains SR 60's with SBP 120's. RR increased 18-22x with no change in vent settings.
--- NOTE | 2017-06-18 04:00 | NUR ---
0400: Diprivan reduced to 20 mcg/kg/min. Pt RR increased 24-28x with SPO2 97%. Pt remains SR with HR 80's on CM with SBP 130's. Oral care done at this time and pt repostioned.
[2017-06-18 05:30] LABS: BASOPHILS 0.1 % (0-2); EOSINOPHILS 0.3 % (0-7); HEMOGLOBIN 11.3 g/dL (13.5-17.5); IMMATURE GRANULOCYTES 0.2 % (0-5); LYMPHOCYTES 3.1 % (15-50); MCH 28.4 pg (26.0-34.0); MCHC 31.4 g/dL (31.0-37.0); MCV 90.5 fL (80.0-100.0); MEAN PLATELET VOLUME 12.3 fL (7.4-10.4); NEUTROPHILS 88.3 % (40-80); PLATELET COUNT 91 10x3/uL (130-400); RBC 3.98 10x6/uL (4.20-6.10); RDW 15.2 % (11.5-14.5); WBC 10.3 10x3/uL (4.8-10.8)
[2017-06-18 05:55] LABS: ALBUMIN 2.7 g/dL (3.4-5.0); BILIRUBIN - TOTAL 0.7 mg/dL (0.2-1.3); CALCIUM 7.8 mg/dL (8.5-10.1); CARBON DIOXIDE 24.3 mmol/L (21.0-32.0); CREATININE - SERUM 1.5 mg/dL (0.6-1.3); MAGNESIUM - SERUM 1.8 mg/dL (1.8-2.4); PHOSPHOROUS 2.3 mg/dL (2.5-4.9); PROTEIN - SERUM 6.5 g/dL (6.4-8.2)
[2017-06-18 05:59] LABS: POTASSIUM - SERUM 3.3 mmol/L (3.5-5.1)
--- NOTE | 2017-06-18 10:06 | NUR ---
VENT CHANGES PER R.T.
--- NOTE | 2017-06-18 12:20 | NUR ---
PARTIAL LINEN CHANGE COMPLETED. TURNED AND REPOSITINED.
--- NOTE | 2017-06-18 18:28 | NUR ---
SPOKE WITH FAMILY ABOUT DISCHARGE PLANNING. STATE NO STAIRS AT HOME. SISTER VAN REFUSES TO DISCUSS REHAB AT SNF FACILITY. STATING THERE IS A CAREGIVER THAT "WILL COST MORE MONEY" BUT CAN COME IN FOR HELP. STATES THE ONLY WAY THEY WILL ALLOW PT TO NOT GO HOME WILL BE IF PT IS COMBATIVE. "WE DON'T SEND OUR PEOPLE TO NURSING HOMES. THEY AT HOME. WHAT'S SO HARD TO UNDERSTAND ABOUT THAT?" UNWILLING TO DISCUSS FURTHER REHAB UNLESS IT IS AT HOME.
[2017-06-18 19:38] LABS: ANION GAP 10.4 mmol/L (8-16); CALCIUM 7.5 mg/dL (8.5-10.1); CARBON DIOXIDE 23.1 mmol/L (21.0-32.0); CREATININE - SERUM 1.6 mg/dL (0.6-1.3); MAGNESIUM - SERUM 2.1 mg/dL (1.8-2.4); POTASSIUM - SERUM 3.5 mmol/L (3.5-5.1)
[2017-06-18 19:39] LABS: PHOSPHOROUS 2.9 mg/dL (2.5-4.9)
--- NOTE | 2017-06-18 19:45 | NUR ---
SHIFT ASSESSMENT COMPLETED. SEE ASSESSMENT FLOWSHEET. WILL OPEN EYES ON SEDATION AND FOLLOW SIMPLE COMMANDS TO ALL 4 EXTREMITIES. ORAL CARE COMPLETED. WILL MONITOR.
--- NOTE | 2017-06-18 20:55 | NUR ---
TURNED AND REPOSITIONED FOR COMFORT. ORAL CARE PROVIDED. WILL MONITOR.
--- NOTE | 2017-06-18 23:00 | NUR ---
REASSESSMENT COMPLETED. SEE ASSESSMENT FLOWSHEET FOR DETAILS. KCL RIDER INFUSING. ORAL CARE COMPLETED. WILL MONITOR.
[2017-06-19] VITALS (24 sets, daily range): BP systolic 95–118; BP diastolic 47–65
--- NOTE | 2017-06-19 01:00 | NUR ---
TURNED TO RT SIDE. ORAL CARE COMPLETED.
--- NOTE | 2017-06-19 03:00 | NUR ---
PORTABLE CHEST XRAY COMPLETED. TOLERATED WELL. 0320: REASSESSMENT COMPLETED. SEE ASSESSMENT. NO NEW ACUTE CHANGES NOTED. WILL MONITOR.
[2017-06-19 04:39] LABS: BASOPHILS 0.1 % (0-2); HEMATOCRIT 31.9 % (42.0-54.0); HEMOGLOBIN 9.7 g/dL (13.5-17.5); IMMATURE GRANULOCYTES 0.2 % (0-5); LYMPHOCYTES 3.9 % (15-50); MCH 28.4 pg (26.0-34.0); MCHC 30.4 g/dL (31.0-37.0); MCV 93.5 fL (80.0-100.0); MEAN PLATELET VOLUME 12.3 fL (7.4-10.4); MONOCYTES 9.8 % (2-11); PLATELET COUNT 74 10x3/uL (130-400); RBC 3.41 10x6/uL (4.20-6.10); RDW 15.8 % (11.5-14.5); WBC 9.6 10x3/uL (4.8-10.8)
--- NOTE | 2017-06-19 05:00 | NUR ---
DIPRIVAN @ 25MCG/KG/MIN.
[2017-06-19 05:07] LABS: ANION GAP 13.1 mmol/L (8-16); BILIRUBIN - TOTAL 0.66 mg/dL (0.2-1.3); CALCIUM 7.5 mg/dL (8.5-10.1); CARBON DIOXIDE 21.9 mmol/L (21.0-32.0); CREATININE - SERUM 1.6 mg/dL (0.6-1.3); MAGNESIUM - SERUM 2.1 mg/dL (1.8-2.4); PROTEIN - SERUM 5.5 g/dL (6.4-8.2)
--- NOTE | 2017-06-19 05:25 | NUR ---
NEW BAG OF IV PROPOFOL BOTTLE AND IV TUBINGS HUNG. NEW TUBE FEEDING BAG HUNG TO OG TUBE. TOLERATING TUBE FEEDINGS. WILL MONITOR.
--- NOTE | 2017-06-19 06:20 | NUR ---
LARRYRIVAN TURNED OFF. Suresh JOHNSTON MADE AWARE.
--- NOTE | 2017-06-19 09:45 | NUR ---
BED BATH AND LINEN CHANGE COMPLETED.
--- NOTE | 2017-06-19 10:00 | NUR ---
VENT CHANGES PER R.T.
--- NOTE | 2017-06-19 15:00 | NUR ---
RESTING ON SIMV PER R.T. PROPOFOL INFUSING. TOLERATING WELL.
--- NOTE | 2017-06-19 19:00 | NUR ---
REPORT RECEIVED AND ASSESSMENT COMPLETED. SEE FLOWSHEET FOR FULL DETAILS. VSS. PT IS VENTILATED AND SEDATED. WILL STOP SEDATION AT [address] CHEATHAM. HAS BEEN ABLE TO RESPOND TO YES AND NO QUESTIONS WHEN OFF SEDATION. WILL MONITOR THROUGHOUT SHIFT FOR CHANGES IN STATUS
--- NOTE | 2017-06-19 21:00 | NUR ---
PROPOFOL REPLACED AT THIS TIME. NO OTHER CHANGES AT THIS TIME. WILL CONTINUE TO MONITOR
--- NOTE | 2017-06-19 23:00 | NUR ---
REASSESSMENT COMPLETED. SEE FLOWSHEET FOR FULL DETAILS. NO OTHER CHANGES IN STATUS AT THIS TIME. VSS. WILL CONTINUE TO MONITOR
[2017-06-20] VITALS (24 sets, daily range): BP systolic 94–123; BP diastolic 53–82
--- NOTE | 2017-06-20 01:00 | NUR ---
NO CHANGES IN STATUS AT THIS TIME. WILL MONITOR
--- NOTE | 2017-06-20 03:00 | NUR ---
REASSESSMENT COMPLETED. SEE FLOWSHEET FOR FULL DETAILS. VSS. WILL CONTINUE TO MONITOR
[2017-06-20 04:11] LABS: BASOPHILS 0.1 % (0-2); EOSINOPHILS 2.6 % (0-7); HEMATOCRIT 32.4 % (42.0-54.0); HEMOGLOBIN 9.9 g/dL (13.5-17.5); IMMATURE GRANULOCYTES 0.1 % (0-5); MCH 28.7 pg (26.0-34.0); MCHC 30.6 g/dL (31.0-37.0); MCV 93.9 fL (80.0-100.0); MEAN PLATELET VOLUME 12.6 fL (7.4-10.4); MONOCYTES 7.4 % (2-11); NEUTROPHILS 82.8 % (40-80); PLATELET COUNT 85 10x3/uL (130-400); RBC 3.45 10x6/uL (4.20-6.10); RDW 15.9 % (11.5-14.5); WBC 7.3 10x3/uL (4.8-10.8)
[2017-06-20 04:39] LABS: ANION GAP 14.3 mmol/L (8-16); BILIRUBIN - TOTAL 0.5 mg/dL (0.2-1.3); CARBON DIOXIDE 22.7 mmol/L (21.0-32.0); CREATININE - SERUM 1.6 mg/dL (0.6-1.3); MAGNESIUM - SERUM 2.2 mg/dL (1.8-2.4); PROTEIN - SERUM 5.8 g/dL (6.4-8.2)
--- NOTE | 2017-06-20 07:15 | NUR ---
REPORT RECIEVED FROM CREDIT CARD SPECIALIST NURSE. PT OFF SEDATION ON CPAP MODE ON VENT AT THIS TIME. TOLERATING WELL WITH NO DISTRESS NOTED. FULL ASSESSMENT COMPLETE PER FLOWSHEET. REFER FOR DETAILS. VSS AT THIS TIME. WILL CONT TO ASSESS FOR CHANGES THROUGHOUT SHIFT. PLAN OF CARE CONT.
--- NOTE | 2017-06-20 07:33 | NUR ---
PLACED ON CPAP 10/, 30% AT [address] VANN.
--- NOTE | 2017-06-20 09:15 | NUR ---
SISTER CALLED AND UPDATE PROVIDED.
--- NOTE | 2017-06-20 09:27 | NUR ---
NUTRITION F/U PULMOCARE AND DIPRIVAN CURRENTLY ON HOLD. NURSING REPORTS IF PT DOES NOT EXTUBATE, WILL RESUME TUBE FEEDS. WILL CONTINUE TO MONITOR PT PROGRESS. RD FOLLOWING
--- NOTE | 2017-06-20 10:40 | NUR ---
MEDICATION GIVEN PER EMAR. OGT PLACEMENT CHECKED USING AIR BOLUS. RESIUDAL LESS THAN 5CC.
--- NOTE | 2017-06-20 11:00 | NUR ---
REASSESSMENT COMPLETE PER FLOWSHEET. NO CHANGES NOTED AT THIS TIME.
--- NOTE | 2017-06-20 12:30 | NUR ---
NO VISITORS AT THIS TIME. VSS. NO CHANGES NOTED
--- NOTE | 2017-06-20 14:15 | NUR ---
FULL BED BATH AND LINEN CHANGE PROVIDED. ORAL CARE COMPLETED ALONG WITH NELSON CARE. VS REMAINED STABLE THROUGHOUT. WILL CONT TO ASSESS.
--- NOTE | 2017-06-20 15:00 | NUR ---
REASSESSMENT COMPLETE PER FLOWSHEET. TURNED AND REPOSITIONED FOR COMFORT. ORAL CARE PROVIDED.
--- NOTE | 2017-06-20 17:00 | NUR ---
NO CHANGES NOTED AT THIS TIME. VSS. WILL CONT TO ASSESS.
--- NOTE | 2017-06-20 18:00 | NUR ---
NO CHANGES AT THIS TIME. VSS.
--- NOTE | 2017-06-20 19:30 | NUR ---
REPORT RECIEVED. ASSESSMENT COMPLETED. SEE FLOW SHEET FOR FURTHER DETAILS. ORAL CARE DONE PT POSITIONED FOR COMFORT WILL CONTINUE TO MONITOR.
--- NOTE | 2017-06-20 21:00 | NUR ---
NO VISITORS AT THIS TIME. PT SISTER CALLED UPDATE WAS PROVIDED. ORAL CARE DONE. PT POSITIONED FOR COMFORT WILL CONTINUE TO MONITOR.
--- NOTE | 2017-06-20 23:06 | NUR ---
REASSESSMENT COMPLETED AT THIS TIME. NO ACUTE CHANGES AT THIS TIME. PT POSITIONED FOR COMFORT WILL CONTINUE TO MONITOR PT.
[2017-06-21] VITALS (24 sets, daily range): BP systolic 97–136; BP diastolic 44–67
--- NOTE | 2017-06-21 00:12 | NUR ---
TUBE FEEDING TURNED BACK ON.
--- NOTE | 2017-06-21 01:43 | NUR ---
PT HAS TUBE FEEDING LOOKING VOMIT CLEANED UP AND SUCTIONED ETT TUBE TUBE FEEDING HELD FOR KNOW. WILL CONTINUE TO MONITOR.
--- NOTE | 2017-06-21 03:00 | NUR ---
REASSESSMENT COMPLETED. NO CHNAGES AT THIS TIME. ORAL CARE DONE POSITIONED PT FOR COMFORT WILL CONTIONUE TO MONITOR.
--- NOTE | 2017-06-21 04:16 | NUR ---
GAVE THE PT A SEDATION VACTION. PT BECAME ALERT AND WOULD FOLLOW COMMANDS SUCH SQUEEZE HANDS. PT PUT BACK ON SEDATION FOR SAFTY OF PT.
[2017-06-21 04:31] LABS: BASOPHILS 0.2 % (0-2); EOSINOPHILS 4.3 % (0-7); HEMATOCRIT 32.4 % (42.0-54.0); HEMOGLOBIN 9.9 g/dL (13.5-17.5); IMMATURE GRANULOCYTES 0.2 % (0-5); LYMPHOCYTES 7.5 % (15-50); MCH 28.4 pg (26.0-34.0); MCHC 30.6 g/dL (31.0-37.0); MCV 93.1 fL (80.0-100.0); MEAN PLATELET VOLUME 11.8 fL (7.4-10.4); MONOCYTES 7.7 % (2-11); NEUTROPHILS 80.1 % (40-80); PLATELET COUNT 96 10x3/uL (130-400); RBC 3.48 10x6/uL (4.20-6.10); RDW 15.5 % (11.5-14.5); WBC 5.9 10x3/uL (4.8-10.8)
[2017-06-21 04:55] LABS: ALBUMIN 1.9 g/dL (3.4-5.0); ANION GAP 14.1 mmol/L (8-16); BILIRUBIN - TOTAL 0.53 mg/dL (0.2-1.3); CALCIUM 8.1 mg/dL (8.5-10.1); CARBON DIOXIDE 21.9 mmol/L (21.0-32.0); CREATININE - SERUM 1.4 mg/dL (0.6-1.3); MAGNESIUM - SERUM 2.2 mg/dL (1.8-2.4); PHOSPHOROUS 3.3 mg/dL (2.5-4.9); PROTEIN - SERUM 5.9 g/dL (6.4-8.2)
--- NOTE | 2017-06-21 05:15 | NUR ---
PT SHOWS NO SIGNS OF DISTRESS. AT THIS POINT POSITIONED FOR COMFORT WILL NCONTINUE TO MONITOR.
--- NOTE | 2017-06-21 07:04 | NUR ---
PLACED ON CPAP 06/16 AT 0705 [address] CR. DAVIS
--- NOTE | 2017-06-21 07:30 | NUR ---
REPORT RECIEVED FROM VP OF TECHNOLOGY NURSE. FULL ASSESSMENT COMPLETE PER FLOWSHEET. VSS AT THIS TIME. WILL CONT TO ASSESS FOR CHANGES THROUGHOUT SHIFT. PLAN OF CARE CONT.
--- NOTE | 2017-06-21 08:03 | NUR ---
DIALYSIS NURSE, BELLA AT BEDSIDE.
--- NOTE | 2017-06-21 09:00 | NUR ---
FAMILY AT BEDSIDE FOR VISITATION. UPDATE PROVIDED PER DR. BAILEY.
--- NOTE | 2017-06-21 10:42 | NUR ---
PLACED BACK ON ORIGINAL SETTINGS PER DR. BAILEY.
--- NOTE | 2017-06-21 11:00 | NUR ---
ORAL CARE PROVIDED. TURNED AND REPOSITIONED FOR COMFORT.
--- NOTE | 2017-06-21 12:00 | NUR ---
ATTEMPTED ADVANCEMENT OF OGT. UNSUCCESFUL WITH ATEMPT. OGT REMOVED AND ATTEMPTED TO REINSERT NEW OGT. NOT SUCCESFUL. WILL NOTIFY DR. BAILEY.
--- NOTE | 2017-06-21 13:00 | NUR ---
DR. BAILEY AWARE OF ISSUES WITH OGT INSERTION. ATTEMPTED HIMSELF. WILL OBTAIN KUB TO VERIFY PLACEMENT.
--- NOTE | 2017-06-21 14:00 | NUR ---
[facility] CALLED AND REPORTED THAT OGT PLACEMENT WAS CORRECT.
--- NOTE | 2017-06-21 15:00 | NUR ---
REASSESSMENT COMPLETE. NO CHANGES NOTED.
--- NOTE | 2017-06-21 16:48 | NUR ---
TELEPHONE CONSENT RECEIVED FOR BRONCHOSCOPY. SPOKE TO SISTER PAUL AND SHE WAS OKAY WITH THE PROCEDURE. QUESTIONS ANSWERED.
--- NOTE | 2017-06-21 18:00 | NUR ---
TURNED AND REPOSITIONED FOR COMFORT. ORAL CARE PROVIDED. VSS. WILL CONT TO ASSESS.
--- NOTE | 2017-06-21 19:30 | NUR ---
REPORT RECIEVED. ASSESSMENT COMPLETED. SEE FLOW SHEET FOR FURTHER DETAILS. ORAL CARE DONE, PT POSITIONED FOR COMFORT WILL CONTINUE TO MONITOR.
--- NOTE | 2017-06-21 21:00 | NUR ---
NO VISITIORS AT THIS TIME. PT POSITIONED FOR COMFORT. WILL CONTINUE TO MONITOR PT.
--- NOTE | 2017-06-21 23:00 | NUR ---
REASSESSMENT COMPLETED. NO ACUTE CHANGES AT THIS TIME. ORAL CARE DONE, POSITIONED FOR COMFORT WILL CONTINUE TO MONITOR AT THIS TIME.
[2017-06-22] VITALS (24 sets, daily range): BP systolic 98–156; BP diastolic 52–73
--- NOTE | 2017-06-22 01:00 | NUR ---
REPOSITIONED PT FOR COMFORT, ORAL CARE DONW WILL CONTINUE TO MONITOR PT.
--- NOTE | 2017-06-22 03:00 | NUR ---
REASSESSMENT COMPLETED AT THIS TIME. NO ACUTE CHANGES AT THIS TIME. WILL CONTINUE TO MONITOR PT.
--- NOTE | 2017-06-22 05:00 | NUR ---
PT REPOSITIONED FOR COMFORT, ORAL CARE DONE WILL CONTINUE TO MONITOR.
[2017-06-22 05:09] LABS: BASOPHILS 0.2 % (0-2); EOSINOPHILS 4.9 % (0-7); HEMATOCRIT 31.5 % (42.0-54.0); HEMOGLOBIN 9.6 g/dL (13.5-17.5); IMMATURE GRANULOCYTES 0.5 % (0-5); LYMPHOCYTES 11.4 % (15-50); MCH 28.5 pg (26.0-34.0); MCHC 30.5 g/dL (31.0-37.0); MCV 93.5 fL (80.0-100.0); MEAN PLATELET VOLUME 11.3 fL (7.4-10.4); MONOCYTES 11.2 % (2-11); NEUTROPHILS 71.8 % (40-80); PLATELET COUNT 95 10x3/uL (130-400); RBC 3.37 10x6/uL (4.20-6.10); RDW 15.3 % (11.5-14.5)
[2017-06-22 05:12] LABS: WBC 4.3 10x3/uL (4.8-10.8)
[2017-06-22 05:25] LABS: ANION GAP 14.2 mmol/L (8-16); CALCIUM 8.4 mg/dL (8.5-10.1); CARBON DIOXIDE 20.9 mmol/L (21.0-32.0); CREATININE - SERUM 1.3 mg/dL (0.6-1.3); POTASSIUM - SERUM 4.1 mmol/L (3.5-5.1)
--- NOTE | 2017-06-22 10:18 | NUR ---
NUTRITION F/U PT REMAINS ON VENT. GRACE @ 19.6 CC/HR. PULMOCARE CURRENTLY OFF FOR BRONCH. WILL PROVIDE PULMOCARE IF TUBE FEEDS RESUMED. RD FOLLOWING
--- NOTE | 2017-06-22 10:28 | NUR ---
PATIENT OPENS EYES TO PAINFUL STIMULISKIN WARM AND DRY. BILATERAL LUNG SOUNDS EQUAL AND FAIRLY CLEAR ABD SOFT WITH BOWEL SOUNDS PRESENT. ETT SECURE TO VENT. AWAITING BRONCH. RIGHT SUBCLAVIAN TRIPLEL LUMEN INFUSING WITH D5 1/2NS AT 75 ML HOUR AND DIPRIVAN AT 30MCG/KG/MIN. MONITOR SIUS LINDEN INTO THE 40'S. SCD ON LOWER LEGS. NELSON CATH PATENT DRAINING CLEAR GIO URINE. HEAD OF BED ELVATED 30 DEGREES. NG CLAMPED NPO FOR BRONCH. SISTER CALLED ON PHONE UP DATE PROVIDED. MULTIPLE BRUISES ON BOTH ARMS NOTED.
--- NOTE | 2017-06-22 10:32 | NUR ---
PATIENT REMAINS ON THE VENT AND UNABLE TO ANSWER QUESTIONS. THERE IS NO FAMILY HERE TO INTERVIEW.
--- NOTE | 2017-06-22 12:59 | NUR ---
PATIENT ON CPAP NOW AWAKE AND ALERT DIPRIVAN IS OFF
--- NOTE | 2017-06-22 13:00 | CN ---
PATIENT NAME:AVEL DAVIS MEDICAL RECORD: [id number] : 43 LOCATION:[facility].2304 ADMIT DATE: 06/15/17 ACCOUNT: [id number] CONSULTING PHYSICIAN: NASIMA JEROME MD REFERRING PHYSICIAN: HANG MILLER MD DATE OF CONSULTATION: 06/21/2017 The patient is currently on a ventilator and I cannot conduct a psychiatric evaluation. Please consult me when he is off the ventilator and able to discuss his situation. TRANSINT:[id number] Voice Confirmation ID: [id number] DOCUMENT ID: [id number] NASIMA JEROME MD at 1300 CC: [id number] DICTATION DATE: 06/21/17 1439 PROFESSOR OF BIOSTATISTICS: 06/21/17 1559 ADM IN [facility] [place] [address] [place] [address]
--- NOTE | 2017-06-22 14:37 | NUR ---
TOLERATE CPAP POORLY RESP RATE UP TO 36, O2 SAT 86-88% PATIENT BECAME RESTLESS, LIFTING UP ARMS. RETURNED TO SIMV AND SEDATION DIPIRIVAN TURNED BACK ON. CALM DOWN. RESTING COMFORTABLY NOW
--- NOTE | 2017-06-22 16:47 | NUR ---
AMP OF NA BICARB ADDED TO CURRENT BAG OF FLUID PER ORDERS OF DR. BAILEY
--- NOTE | 2017-06-22 19:30 | NUR ---
REPORT RECIEVED ASSESSMENT COMPLETED. SEE FLOW SHEET FOR FURTHER DETAILS. ORAL CAERE DONE. PT POSITIONED FOR COMFORT, WILL CONTINUE TO MONITOR PT.
--- NOTE | 2017-06-22 21:00 | NUR ---
NO VISITORS AT THIS TIME. ORAL CARE DONE. POSITIONED PT FOR COMFORT. VSS. WILL CONTINUE TO MONITOR PT.
--- NOTE | 2017-06-22 23:00 | NUR ---
REASSESSMENT COMPLETED AT THIS TIME. NO ACUTE CHNAGES. PT POSITIONED FOR COMFORT WILL CONTINUE TO MONITOR.
[2017-06-23] VITALS (25 sets, daily range): BP systolic 98–164; BP diastolic 47–101
--- NOTE | 2017-06-23 01:00 | NUR ---
ORAL CARE DONE. POSITIONED PT FOR COMFORT WILL CONTINUE TO MONITOR PT.
--- NOTE | 2017-06-23 03:00 | NUR ---
REASSESSMENT COMPLTED AT THIS TIME. NO ACUTE CHANGES. ORAL CARE DONE PT POSITIONED FOR COMFORT WILL CONTINUE TO MONITOR.
[2017-06-23 04:20] LABS: BASOPHILS 0.2 % (0-2); EOSINOPHILS 2.8 % (0-7); HEMATOCRIT 31.6 % (42.0-54.0); HEMOGLOBIN 9.6 g/dL (13.5-17.5); IMMATURE GRANULOCYTES 1.1 % (0-5); LYMPHOCYTES 9.3 % (15-50); MCH 28.1 pg (26.0-34.0); MCHC 30.4 g/dL (31.0-37.0); MCV 92.4 fL (80.0-100.0); MEAN PLATELET VOLUME 11.3 fL (7.4-10.4); MONOCYTES 10.2 % (2-11); NEUTROPHILS 76.4 % (40-80); PLATELET COUNT 104 10x3/uL (130-400); RBC 3.42 10x6/uL (4.20-6.10)
[2017-06-23 04:27] LABS: WBC 5.4 10x3/uL (4.8-10.8)
[2017-06-23 04:34] LABS: ANION GAP 13.4 mmol/L (8-16); CALCIUM 8.1 mg/dL (8.5-10.1); CARBON DIOXIDE 23.5 mmol/L (21.0-32.0); CREATININE - SERUM 1.4 mg/dL (0.6-1.3); POTASSIUM - SERUM 3.9 mmol/L (3.5-5.1); VANCOMYCIN - TROUGH 11.4 ug/mL (10.0-20.0)
--- NOTE | 2017-06-23 05:48 | NUR ---
ORAL CARE PROVIDED, REPOSITIONED FOR COMFORT,
--- NOTE | 2017-06-23 07:00 | NUR ---
PT ON VENT. SIMV MODE, RATE 14, TIDAL VOLUME 600, FIO2 30%, PEEP OF 5, AND PS 20. ETT 8.0, 26 AT RIGHT LIP LINE. CURRENTLY OFF PROPOFOL. HAS RIGHT SUBCLAVIAN CVL. DRESSING CDI. D5 1/2 NS AT 75ML/HR. OGT WITH PULMOCARE INFUSING AT 10ML/HR WITH 30ML FLUSH Q HOURLY. CVP ZEROD 8. ABLE TO FOLLOW COMMANDS. REST OF ASSESSMENT IN ASSESMENT CHART. MOMO CONTINUE TO MONITOR.
--- NOTE | 2017-06-23 09:16 | NUR ---
MORNINGS MEDS GIVEN WITH NO COMPLICATIONS. IN ROOM. PT STILL OFF SEDATION. CURRENTLY ON BIPAP TRIAL. PT TOLERATING WELL. POSITIONED TO LEFT SIDE. WILL CONTINUE TO MONITOR.
--- NOTE | 2017-06-23 10:21 | NUR ---
NELSON WAS LEAKING. BALLOON HAD 8 1/2ML. ADDED 1 1/2ML. NELSON AND PERICARE PROVIDED. COMPLETE LINEN CHANGE PROVIDED. PT TOLERATED WELL. STILL ON CPAP MODE. WILL CONTINUE TO MONITOR.
--- NOTE | 2017-06-23 12:47 | EC ---
PATIENT:AVEL DAVIS DATE OF SERVICE: 06/15/17 SEX: M MEDICAL RECORD: [id number] DATE OF : 43 LOCATION:[facility] AGE OF PATIENT: 71 ADMISSION DATE: 06/15/17 REFERRING PHYSICIAN: INTERPRETING PHYSICIAN: HEATHER CROOK MD ECHOCARDIOGRAM REPORT ECHO CHARGES 4 ECHO COMPLETE CLINICAL DIAGNOSIS: L;ATERED MENTAL STATUS/BRADYCARDIA HX OF AFIB \CABG ECHOCARDIOGRAPHIC MEASUREMENTS (adult normal given) AC root (d.<3.7cm) 4.1 cm LV Septum d (<1.2 cm> 1.7 cm Valve Excursion 1.9 cm LV Septum (systole) 2.1 cm Left Atria (s.<4.0cm> 4.7 cm LVPW d(<1.2cm) 2.2 cm RV (d.<2.3cm) 4.8 cm LVPW (sytole) 2.4 cm LV diastole(<5.6CM) 5.3 cm MV E-F(>70mm/sec) cm LV systole 3.1 cm LVOT Diameter 1.8 cm MV exc.(>10mm) 1.7 cm Est.ejection fraction (50-75%) % Pericardial Effusion N DOPPLER: LVIT cm/sec A 67.0 cm/sec E 82.0 cm/sec LA cm/sec RVSP 23 mmHg LVOT 104 cm/sec AOP1/2T m/s Asc. Ao 159 cm/sec RVOT 74 cm/sec RA cm/sec PA 123 cm/sec AV Gradient Peak 10.00mmHg AV Mean 5.98 mmHg AV Area 1.5 cm MV Gradient Peak 4.59 mmHg MV Mean 1.16 mmHg MV Area cm COMMENTS: Cardiovascular Radiologic Technologist: 2 ZARI CARLOS Field Advisor: Faustino Crook TAPE# PACS DATE OF SERVICE: 06/16/2017 PROCEDURE: Transthoracic echocardiogram. FINDINGS: 1. The left ventricle shows moderate to severe concentric left ventricular hypertrophy with ejection fraction 65%. No regional wall motion abnormalities. Inflow characteristics appear to show pseudonormalization diastolic dysfunction. 2. Mitral valve is structurally normal with mild mitral regurgitation. ECHOCARDIOGRAM REPORT [id number] AVEL DAVIS 3. The left atrium is moderately dilated. 4. The right ventricle shows evidence of right ventricular hypertrophy and mild dilatation to moderate dilatation. 5. Aortic valve is normal. 6. The mitral valve has mild mitral regurgitation. 7. The pulmonic valve is not well visualized, grossly normal. There is no pericardial effusion. RVSP demonstrated here was normal. IVC is not well visualized. CONCLUSIONS: The patient has evidence of at least moderate hypertensive heart disease with aaug-qk-fmjyctal mitral regurgitation. TRANSINT:[id number] Voice Confirmation ID: [id number] DOCUMENT ID: [id number] 06/21/2017 Edited to correct date of service, dm. HEATHER CROOK MD at 1247 CC: [id number] DICTATION DATE: 06/17/17 0747 SCOURING PADS SUPERVISOR: 06/17/17 0823 ADM IN [facility] [address] [place] [address]
--- NOTE | 2017-06-23 12:53 | NUR ---
RESTLESS NOTED. O2 SAT DECREASED TO 88%. ENCOURAGED PT TO COUGH. PT COUGHED. O2 SAT STILL IN UPPER 80S. INCREASE O2 FROM 3L TO 6L. RESPIRATORY WAS PAGED. PT O2 SAT INCREASE TO MID 90S. HAD TO PUT NASAL CANULA IN MOUTH. PT WAS BREATHING WITH MOUTH NOT NOSE. 02 SAT DROPPED AGAIN. HR WENT INTO UNCONTROLLED A-FIB UP TO 130S. DR. MAURICIO NOTIFIED OF PT'S CONDITION. RESPIRATORY THERAPIST CAME IN ROOM. DECADRON 10MG GIVEN PER DR. MAURICIO'S ORDERS. RT GAVE BREATHING TREATMENT. PT PLACED ON BIPAP.
--- NOTE | 2017-06-23 12:59 | NUR ---
HR STILL IN THE LOW 130S. BOUNCING UP AND DOWN. SLIGHT STRIDOR STILL AUDIBLE. WILL CONTINUE TO MONITOR.
--- NOTE | 2017-06-23 13:30 | NUR ---
PATIENT IS ON THE VENT AND UNABLE TO ANSWER QUESTIONS. THERE IS NO FAMILY PRESENT AT THIS TIME TO ANSWER QUESTIONS REGARDING DISCHARGE PLANNING.
--- NOTE | 2017-06-23 14:26 | NUR ---
SPOKE WITH DR. CROOK ABOUT HEART RATE BEING ELEVATED. HE ORDERED 5MG LOPRESSOR IV PUSH X 3 DOSES Q 30MINUTES. HOLD IF HR IS BELOW 90 OR SYTOLIC BP IS LESS THAN 100.
--- NOTE | 2017-06-23 14:45 | NUR ---
LOPRESSOR 5MG IV PUSH GIVEN PER ORDERS. BP 142/87 MAP 100, IA OF 111. WILL CONTINUE TO MONITOR.
--- NOTE | 2017-06-23 15:52 | NUR ---
SPOKE WITH SISTER AND GAVE AN UPDATE. HEART RATE IN THE 90S. BP 143/72 MAP 96. PT RESTING AT THIS TIME.
--- NOTE | 2017-06-23 18:27 | NUR ---
AT 1735 PT WAS BAGGED DUE TO O2 SAT OF 70%. AT [address] MAURICIO. DEPRIVAN RESTARTED AT 20MCG/KG/MIN. ETT SIZE 7.5 AT MIDLINE AT THE LIP. VENT SETTINGS ARE FOLLOWS R 14, TV 600, FIO2 60%, PEEP OF 5. WRIST RESTRAINTS REAPPLIED TO PREVENT EXTUBATION. PT O2 SAT AT THIS TIME IS 98%. BP 132/76 MAP OF 104, SC 65. WILL CONTINUE TO MONITOR.
--- NOTE | 2017-06-23 19:30 | NUR ---
REC'D TO CARE, DELIVERY PROFESSIONAL PER FLOWSHEET. PT SEDATED ON VENT. OPENS EYES AND RICHA - WEAKLY. IVFS INFUSING TO R TLSC, DSG C/D/I - SEE FLOWSHEET. WILL TITRATE DIPRIVAN GTT PER ORDERS. CM - SB. OGT TO LIWS, LIGHT GREEN DRAINAGE. NELSON CATH PATENT. FEET COOL, PEDAL PULSES DOPPLERABLE. ALARMS ON. WILL CONT CLOSE MONITORING.
--- NOTE | 2017-06-23 21:00 | NUR ---
NO VISITORS. NO CHANGES AT THIS TIME. CONT Q2H TURNING AND ORAL CARE. HEELS BRIDGED.
[2017-06-23 21:08] LABS: AFB SPECIMEN PROCESSING Concentration (())
--- NOTE | 2017-06-23 23:24 | NUR ---
REASSESSMENT PER FLOWSHEET, NO ACUTE CHANGES. FIO2 TO 45% PER RT. VSS. NO SIGN OF DISTRESS.
--- NOTE | 2017-06-23 23:52 | NUR ---
REPOSITIONED UP IN BED TO L SIDE, ORAL CARE DONE.
[2017-06-24] VITALS (23 sets, daily range): BP systolic 97–138; BP diastolic 47–73
--- NOTE | 2017-06-24 01:00 | NUR ---
RESTING QUIETLY, NO SIGN OF DISTRESS. VSS.
--- NOTE | 2017-06-24 02:00 | NUR ---
PT INCONT OF SMALL SOFT STOOL. COMPLETE BATH AND LINEN CHANGE DONE. NELSON-CARE AND MARLENE-CARE DONE.
--- NOTE | 2017-06-24 02:52 | NUR ---
REASSESSMENT PER FLOWSHEET, NO ACUTE CHANGES. SORE TO UPPER LIP CLEANSED.
--- NOTE | 2017-06-24 05:00 | NUR ---
NO VISITORS. SISTER UPDATED OVER PHONE. AM LAB PENDING. ABGS RESULTED, FIO2 NOW 40%.
[2017-06-24 05:16] LABS: BASOPHILS 0.2 % (0-2); EOSINOPHILS 1.1 % (0-7); HEMATOCRIT 29.2 % (42.0-54.0); IMMATURE GRANULOCYTES 1.1 % (0-5); LYMPHOCYTES 10.7 % (15-50); MCH 28.3 pg (26.0-34.0); MCHC 30.8 g/dL (31.0-37.0); MCV 91.8 fL (80.0-100.0); MEAN PLATELET VOLUME 11.3 fL (7.4-10.4); NEUTROPHILS 77.9 % (40-80); PLATELET COUNT 103 10x3/uL (130-400); RBC 3.18 10x6/uL (4.20-6.10); RDW 14.6 % (11.5-14.5); WBC 4.6 10x3/uL (4.8-10.8)
[2017-06-24 05:49] LABS: ALBUMIN 1.8 g/dL (3.4-5.0); BILIRUBIN - TOTAL 0.31 mg/dL (0.2-1.3); CALCIUM 7.9 mg/dL (8.5-10.1); CARBON DIOXIDE 23.5 mmol/L (21.0-32.0); CREATININE - SERUM 1.2 mg/dL (0.6-1.3); POTASSIUM - SERUM 3.5 mmol/L (3.5-5.1); PROTEIN - SERUM 5.5 g/dL (6.4-8.2)
--- NOTE | 2017-06-24 06:24 | NUR ---
K+ 3.5 - COVERAGE PER ELECTROLYTE PROTOCOL INITIATED
--- NOTE | 2017-06-24 07:15 | NUR ---
PT INTUBATED. VENT SETTING A/C, R 14, TV 600, FIO2 40%, PEEP 5. O2 SAT OF 98%. ON DRIVER COURIER WITH HR 48, SYNUS BRADYCARDIA. CVP 11. R-SUBCLAVIAN CVL WITH DRESSING CDI, PROPOFOL INFUSING AT 15MCG/KG/MIN. D5W +BICARB INFUSING AT 75ML/HR. POTASSIUM RIDERS INFUSING TO TREAT POTASSIUM OF 3.5. RHONKI HEARD OVER LEFT AND RIGHT UPPER AND MIDDLE LOBES. EXPIRATORY WHEEZE HEARD OVER R&L LOWER LOBES. BS ACTIVE X 4. PT OPENS EYES AND FOLLOWS COMMANDS. NELSON DEPENDENT TO SIDE OF BED. CONCENTRATED YELLOW URINE NOTED. L&R RADIAL PULSE PALPABLE. PEDAL PULSES ASSESSED WITH DOPPLER. PT CURRENTLY RESTING ON HIS BACK. SCD'S OFF AT THIS TIME. BED LOW POSTION. SIDE RAILS UP X 2. WILL CONTINUE TO MONITOR.
--- NOTE | 2017-06-24 09:24 | NUR ---
TUBE FEEDINGS RESTARTED PER DR. MAURICIO'S ORDERS. PULMOCARE AT 20CC WITH 25ML FLUSH Q 1HR. HOB AT 30 DEGREES. O2 SAT 97%. BP 121/56 MAP 84, HR 50. PT RESTING. WILL CONTINUE TO MONITOR.
--- NOTE | 2017-06-24 09:40 | NUR ---
NUTRITION F/U PT REMAINS SEDATED ON VENT. PULMOCARE @ 20 CC/HR. RECOMMEND GOAL RATE 45 CC/HR. RD FOLLOWING
--- NOTE | 2017-06-24 11:11 | NUR ---
REASSESSMENT COMPLETED. TEMP OF 99.2 ORALLY. BP 129/55 MAP 89, HR 53, RR 13, O2 SAT 97%, CVP 8. RESTING COMFORTABLY. WILL CONTINUE TO MONITOR.
--- NOTE | 2017-06-24 15:00 | NUR ---
REASSESSMENT COMPLETED. PT LUNGS CLEAR UPPER AND MIDDLE LOBES. DIMINISHED ON R AND L LOWER LOBE. PEDAL PULSES ASSESSED WITH DOPPLER. FEET COOL TO THE TOUCH. NO OTHER NEEDS AT THIS TIME.
[2017-06-24 15:22] LABS: FUNGUS STAIN Final report (())
--- NOTE | 2017-06-24 20:15 | NUR ---
ASSESSMENT COMPLETED. SEE ASSESSMENT FOR DETAILS.
--- NOTE | 2017-06-24 21:00 | NUR ---
NO VISITORS AT THIS TIME. EYES CLOSED. WILL OPEN TO TOUCH OR VOICE. WILL MONITOR.
--- NOTE | 2017-06-24 23:10 | NUR ---
REASSESSMENT COMPLETED. SEE ASSESSMENT FOR DETAILS. ORAL CARE PROVIDED. TURNED AND REPOSITIONED TO LEFT SIDE. ARMS ELEVATED DUE TO SWELLING. <5 ML OF GASTRIC RESIDUAL NOTED. WILL MONITOR.
[2017-06-25] VITALS (24 sets, daily range): BP systolic 95–141; BP diastolic 44–66
--- NOTE | 2017-06-25 00:30 | NUR ---
R.T. AT BEDSIDE, ORAL CARE PROVIDED PER R.T. MED GIVEN VIA OGT. NEW BAG OF MARYJANE SHAW. WILL MONITOR.
--- NOTE | 2017-06-25 03:55 | NUR ---
AM LABS DRAWN VIA CVP PORT OF CVL WITHOUT DIFFICULTY. WILL MONITOR.
[2017-06-25 04:02] LABS: BASOPHILS 0.2 % (0-2); EOSINOPHILS 1.3 % (0-7); HEMATOCRIT 30.4 % (42.0-54.0); HEMOGLOBIN 9.4 g/dL (13.5-17.5); IMMATURE GRANULOCYTES 1.7 % (0-5); LYMPHOCYTES 13.7 % (15-50); MCH 28.4 pg (26.0-34.0); MCHC 30.9 g/dL (31.0-37.0); MCV 91.8 fL (80.0-100.0); MEAN PLATELET VOLUME 11.2 fL (7.4-10.4); MONOCYTES 7.3 % (2-11); NEUTROPHILS 75.8 % (40-80); PLATELET COUNT 102 10x3/uL (130-400); RBC 3.31 10x6/uL (4.20-6.10); RDW 14.5 % (11.5-14.5); WBC 5.3 10x3/uL (4.8-10.8)
[2017-06-25 04:19] LABS: ALBUMIN 1.9 g/dL (3.4-5.0); BILIRUBIN - TOTAL 0.34 mg/dL (0.2-1.3); CALCIUM 7.9 mg/dL (8.5-10.1); CARBON DIOXIDE 25.3 mmol/L (21.0-32.0); CREATININE - SERUM 1.2 mg/dL (0.6-1.3); MAGNESIUM - SERUM 1.8 mg/dL (1.8-2.4); PHOSPHOROUS 3.3 mg/dL (2.5-4.9); PROTEIN - SERUM 5.4 g/dL (6.4-8.2)
[2017-06-25 04:24] LABS: POTASSIUM - SERUM 3.3 mmol/L (3.5-5.1)
--- NOTE | 2017-06-25 04:42 | NUR ---
POTASSIUM RIDER STARTED FOR POTASSIUM 3.3 FOLLOWING ELECTROLYE PROTOCOL. SISTER CALLED FOR UPDATE-GIVEN AFTER PASSWORD VERIFIED. WILL MONITOR.
--- NOTE | 2017-06-25 08:00 | NUR ---
TOLERATING TUBE FEEDING. RATE ADJUSTED.
--- NOTE | 2017-06-25 10:45 | NUR ---
PASSWORD VERIFIED. SISTER UPDATED VIA TELEPHONE.
--- NOTE | 2017-06-25 11:55 | NUR ---
DR. BAILEY AT BEDSIDE.
--- NOTE | 2017-06-25 16:21 | NUR ---
FAMILY AT BEDSIDE. PASSWORD VERIFIED UPDATE GIVEN.
--- NOTE | 2017-06-25 19:28 | NUR ---
DECREASED PROPOFOL FROM 40 TO 25 MCG/KG/MIN DUE TO SAS/MONTSE OF 3. WILL MONITOR.
--- NOTE | 2017-06-25 19:50 | NUR ---
SHIFT ASSESSMENT COMPLETED. SEE ASSESSMENT FLOWSHEET FOR DETAILS. DIPRIVAN BOTTLE ALMOST EMPTY. WILL MONITOR.
--- NOTE | 2017-06-25 21:30 | NUR ---
NEW BAG OF IV FLUIDS HUNG. ORAL CARE COMPLETED. GRIAMCES WHEN ORAL CARE COMPLETED. TURNED AND REPOSITIONED FOR PRESSURE RELIEF. WILL MONITOR.
--- NOTE | 2017-06-25 23:30 | NUR ---
TURNED AND REPOSITONED. ORAL CARE PROVIDED.
[2017-06-26] VITALS (24 sets, daily range): BP systolic 103–136; BP diastolic 50–64
--- NOTE | 2017-06-26 01:15 | NUR ---
EYES CLOSED. NO ACUTE DISTRESS NOTED. WILL MONITOR.
--- NOTE | 2017-06-26 03:05 | NUR ---
PORTABLE CHEST XRAY COMPLETED. TOLERATED WELL. WILL MONITOR.
--- NOTE | 2017-06-26 03:30 | NUR ---
REASSESSMENT COMPLETED. SEE ASSESSMENT FLOWSHEET. NO NEW ACUTE CHANGES. OPENS EYES ON SEDATION BUT IS NOT FOLLOWING COMMANDS CURRENTLY. WILL MONITOR.
[2017-06-26 04:31] LABS: BASOPHILS 0.3 % (0-2); EOSINOPHILS 3.9 % (0-7); HEMATOCRIT 30.4 % (42.0-54.0); HEMOGLOBIN 9.4 g/dL (13.5-17.5); IMMATURE GRANULOCYTES 1.3 % (0-5); MCH 28.5 pg (26.0-34.0); MCHC 30.9 g/dL (31.0-37.0); MCV 92.1 fL (80.0-100.0); MEAN PLATELET VOLUME 10.9 fL (7.4-10.4); MONOCYTES 8.1 % (2-11); NEUTROPHILS 74.4 % (40-80); PLATELET COUNT 112 10x3/uL (130-400); RDW 14.8 % (11.5-14.5); WBC 3.8 10x3/uL (4.8-10.8)
[2017-06-26 04:34] LABS: ALBUMIN 2.3 g/dL (3.4-5.0); ANION GAP 9.3 mmol/L (8-16); BILIRUBIN - TOTAL 0.33 mg/dL (0.2-1.3); CALCIUM 8.3 mg/dL (8.5-10.1); CARBON DIOXIDE 29.5 mmol/L (21.0-32.0); CREATININE - SERUM 1.2 mg/dL (0.6-1.3); MAGNESIUM - SERUM 1.9 mg/dL (1.8-2.4); PHOSPHOROUS 3.2 mg/dL (2.5-4.9); PROTEIN - SERUM 5.7 g/dL (6.4-8.2)
[2017-06-26 04:45] LABS: POTASSIUM - SERUM 3.8 mmol/L (3.5-5.1)
--- NOTE | 2017-06-26 05:05 | NUR ---
ORAL CARE COMPLETED. TURNED AND REPOSITIONED. PERINEAL AREA CLEANSED PER NELSON CATH CARE PROTOCOL. NO BM NOTED WHEN CHECKED. WILL MONITOR.
--- NOTE | 2017-06-26 15:55 | NUR ---
PATIENT LIVED W/ HIS 2 SISTERS PRIOR TO ADMISSION. ONE HAS [employer] AND UTILIZES A WHEELCHAIR/ ONE IS BLIND/ THEY DO HAVE PRIVATE HIRE ASSISTANCE. THE PATIENT HAS HAD HOME HEALTH W/ [facility] IN THE PAST FOR PHYSICAL THERAPY / OT. PATIENT WAS REPORTEDLY MOSTLY INDEPENDENT PRIOR TO ADMISSION. HE COULD SHOWER HIMSELF. MOBILIZE W/ WALKER AND WHEELCHAIR. HE WORE NASAL O2 AT NIGHT. DOES NOT HAVE A NEBULIZER. PATIENT HAS A SHOWER BENCH & HAND HELD SHOWER HEAD. NO SHOWER BARS. RUBY IS THE DME PROVIDER. CONSULTANTS- DR ALANIS - CARDIO/ DR DAVEY- NEPHROLOGY PCP DR GAN [facility]- [facility] THE SISTERS WOULD LIKE FOR THE PATIENT TO RETURN HOME. THEY FEEL THEY CAN TAKE CARE OF HIM W/ [facility]. HOWEVER MS VALLES REALIZES HE MAY NEED SOME REHAB PRIOR TO COMING HOME. JANEY WILL FOLLOW TO ASSIST. ADVISED HER THAT TANVI RESTREPO IS THE ICU RELAY CHECKER DURING THE WEEK. THE SISTERS HAVE DIFFICULTY W/ VISITING THEY NEED ASSISTANCE UPSTAIRS WHEN THEY COME. CM HAD ADVISED STAFF TO PLEASE NOTIFY WHEN THE FAMILY CALLED. MS VALLES ALSO EXPRESSED WORRY ABOUT THE HOSPITAL BILL. SHE REPORTS THE PATIENT HAS NO SECONDARY INSURANCE. CM PROVIDED THE PHONE NUMBER FOR [employer] TO ASSIST.
--- NOTE | 2017-06-26 19:00 | NUR ---
REPORT RECEIVED AND ASSESSMENT COMPLETED. PT IS ADMITTED WITH RESP FAILURE. CURRENTLY INTUBATED. WAS EXTUBATED AND REINTUBATED EARLIER THIS WEEK. CURRENTLY SIMV RATE OF 12 35%, TIDAL VOLUME OF 600 PEEP OF 5. 25 AT THE LIP SIZE 7.5 ETT. OGT PULMOCARE AT 45 ML/HR, AND 25 ML FLUSH. PT SET TO CPAP IN AM. WILL MONITOR THROUGHOUT SHIFT.
--- NOTE | 2017-06-26 21:00 | NUR ---
HCO3 DRIP TO BE D/C'D UPON COMPLETION OF CURRENT BAG. NO OTHER CHANGES IN STATUS AT THIS TIME. WILL MONITOR
--- NOTE | 2017-06-26 23:00 | NUR ---
REASSESSMENT COMPLETED SEE FLOWSHEET FOR FULL DETAILS. NO OTHER CHANGES IN STATUS AT THIS TIME. VSS. WILL CONTINUE TO MONITOR.
[2017-06-27] VITALS (25 sets, daily range): BP systolic 95–159; BP diastolic 46–83
--- NOTE | 2017-06-27 01:00 | NUR ---
PT REPOSITIONED, ORAL CARE PROVIDED. NO CHANGES IN STATUS AT THIS TIME. WILL CONTINUE TO MONITOR
--- NOTE | 2017-06-27 03:00 | NUR ---
REASSESSMENT COMPLETED AT THIS TIME. SEE FLOWSHEET FOR FULL DETAILS. NELSON CARE AND ORAL CARE PERFORMED AT THIS TIME. NO OTHER CHANGES IN STATUS TO REPORT. VSS. WILL MONITOR THROUGHOUT REST OF SHIFT.
[2017-06-27 04:20] LABS: BASOPHILS 0.5 % (0-2); HEMATOCRIT 29.8 % (42.0-54.0); HEMOGLOBIN 9.1 g/dL (13.5-17.5); IMMATURE GRANULOCYTES 1.7 % (0-5); LYMPHOCYTES 13.9 % (15-50); MCH 28.3 pg (26.0-34.0); MCHC 30.5 g/dL (31.0-37.0); MCV 92.5 fL (80.0-100.0); MEAN PLATELET VOLUME 10.8 fL (7.4-10.4); MONOCYTES 8.9 % (2-11); PLATELET COUNT 120 10x3/uL (130-400); RBC 3.22 10x6/uL (4.20-6.10); WBC 4.2 10x3/uL (4.8-10.8)
[2017-06-27 04:39] LABS: ANION GAP 12.1 mmol/L (8-16); CALCIUM 8.3 mg/dL (8.5-10.1); CARBON DIOXIDE 27.1 mmol/L (21.0-32.0); CREATININE - SERUM 1.1 mg/dL (0.6-1.3); MAGNESIUM - SERUM 1.9 mg/dL (1.8-2.4); PHOSPHOROUS 3.6 mg/dL (2.5-4.9); POTASSIUM - SERUM 4.2 mmol/L (3.5-5.1)
--- NOTE | 2017-06-27 05:00 | NUR ---
NO CHANGES IN STATUS AT THIS TIME. ABGS DRAWN BY RESPIRATORY. WILL CONTINUE TO MONITOR. VSS.
--- NOTE | 2017-06-27 07:15 | NUR ---
Pt intubated. Vent settings at this time are CPAP trials, TV 600, FiO2 35%, PEEP 5, PS 15. Propofol of at this time for CPAP trial. Oral temp was 99.4, RR 22, BP 159/73 MAP 98, HR 56 Synus bradycardia, CVP 10. S1S2 audible. Lung sounds clear throughout. Productive cough noted with clear thin mucus. Oral and inline suctioning provided. BS active x 4 quadrants. Bruising noted on arms, legs and abdomen. Upper lip swollen with scab on midline of lip. SDC'S currently on both legs. Stearns dependent on the right side of the bed. Yellow urine noted. R-Subclavian CVL in place with D5 1/2NS+ 1AMP BICARB INFUSING AT 30ML/HR. NS INFUSING AT 10ML/HR. NS being used for antibiotics. No other needs at this time. Bed in low position, bed alarm on, side rails up x2.
--- NOTE | 2017-06-27 09:05 | NUR ---
NUTRITION F/U CHART REVIEWED. PT REMAINS ON VENT. NURSING REPORTS PT TOLERATING PULMOCARE @ GOAL RATE 45 CC/HR. WILL CONTINUE TO PROVIDE PULMOCARE, MONITOR PT PROGRESS. RD FOLLOWING
--- NOTE | 2017-06-27 10:00 | NUR ---
PT PULLED UP IN BED AND REPOSITONED ONTO LEFT SIDE. BUTTOCK'S REDNESS IMPROVING. ORAL AND INLINE SUCTIONING PROVIDED. THIN CLEAR MUCUS NOTED. WILL CONTINUE TO MONITOR.
--- NOTE | 2017-06-27 11:27 | NUR ---
DR. VANN SPOKE WITH SISTER ABOUT PT CONDITION.
--- NOTE | 2017-06-27 11:43 | CN ---
PATIENT NAME:AVEL DAVIS MEDICAL RECORD: [id number] : 43 LOCATION:[facility].2304 ADMIT DATE: 06/15/17 ACCOUNT: [id number] CONSULTING PHYSICIAN: ANNE VANN MD REFERRING PHYSICIAN: HEATHER MILLER MD DATE OF CONSULTATION: 06/16/2017 CONSULT REQUESTING PHYSICIAN: Heather Miller MD. REASON FOR CONSULTATION: Vent management, respiratory failure. HISTORY OF PRESENT ILLNESS: Mr. Davis is a 71-year-old gentleman who was admitted to [facility] with mental status changes. He was discharged yesterday, became more confused, agitated, with shortness of breath and was brought into the ER. On evaluation, it was found the patient was in respiratory distress and he was put on BiPAP overnight. His initial ABG was pH was 7.31, pCO2 was 72.7, pO2 was 66. The repeat ABG this morning, the pH was 7.16, pCO2 was 105 and the patient was very obtunded. The patient was electively intubated. The history was taken by reviewing the patient's note and talking to the nursing staff. REVIEW OF SYSTEMS: The detail is not obtainable. PAST MEDICAL HISTORY: 1. Coronary artery disease. 2. Hypertension. 3. Diabetes mellitus. 4. Hypothyroidism. 5. Chronic hypoxic respiratory failure. 6. Obstructive sleep apnea. He is on CPAP at night. PAST SURGICAL HISTORY: He has: 1. CABG. 2. Cholecystectomy. 3. Bilateral shoulder surgery. 4. Knee and hip surgery. 5. Surgery for carpal tunnel syndrome. 6. Herniorrhaphy. 7. TURP. ALLERGIES: HE IS ALLERGIC TO MORPHINE. PRESENT MEDICATIONS: On [employer] was reviewed. He was on p.o. Levaquin. PERSONAL AND SOCIAL HISTORY: The patient is an ex-smoker. He is a nondrinker. FAMILY HISTORY: Significant for cancer and neurological disorder. PHYSICAL EXAMINATION: GENERAL: Now, the patient is orally intubated and sedated. VITAL SIGNS: The blood pressure is 110/50, pulse is 59, respiration is 12, temperature is 98.1, and SpO2 is 97% on assist control mechanical ventilation. HEENT: Conjunctivae are pink. Sclerae are nonicteric. NECK: Supple. No JVD. CHEST: There is no wheeze, no rales. HEART: Rhythm regular, normal sound. No murmur. CONSULT REPORT [id number] AVEL DAVIS ABDOMEN: Soft. Bowel sounds present. No hepatosplenomegaly. RECTAL: Deferred. EXTREMITIES: No cyanosis, no clubbing, no pedal edema. SKIN: Warm, normal turgor. CENTRAL NERVOUS SYSTEM: The patient is orally intubated and sedated. The patient is legally blind. LABORATORY DATA: CBC: WBC 7.9, hemoglobin 13.5, hematocrit 45, the platelet count was 98. Chemistry: Sodium is 145, potassium 4.2, BUN is 33, creatinine 1.9, glucose 159. ABG initial, pH 7.31, CO2 of 72.7, pO2 of 66, bicarbonate 36.6. Repeat ABG: The pH is 7.16, pCO2 is 105.9, pO2 of 61, bicarbonate 37.9. Chemistry: Sodium is 145, potassium 4.2. His ammonia level was 14. The troponin was 0.19. Urine toxicology screen is negative. IMPRESSION: 1. Acute hypoxic hypercapnic respiratory failure. 2. Respiratory acidosis secondary to #1. 3. Acute mental status changes secondary to hypercarbia. 4. Bradycardia. 5. Elevated cardiac enzymes, rule out acute coronary syndrome. 6. Hypotension, possibly secondary to hypovolemia. 7. Chronic kidney disease. RECOMMENDATION: 1. Continue mechanical ventilation, DVT and GI stress ulcer prevention. Check the CT scan of the head. Follow up labs and chest radiograph. IV fluid normal saline boluses as required. Start him on dopamine, atropine dose is given. 2. Consult cardiology. Dr. Miller, thank you for involving me in the care of Mr. Davis. TRANSINT:[id number] Voice Confirmation ID: [id number] DOCUMENT ID: [id number] ANNE VANN MD at 1143 CC: LAYLA GAN MD [id number] DICTATION DATE: 06/16/17 1333 GENERAL EDUCATION PROFESSOR: 06/16/17 1506 ADM IN [facility] [address] [place] [address]
--- NOTE | 2017-06-27 12:20 | NUR ---
PT RESTING ON HIS BACK. ADDED 2CC OF NS TO CATHETER BALLOON TO KEEP IT FROM LEAKING. THERE WAS ONLY 8CC WHEN ASSESSED. ORAL AND INLINE SUCTIONING PROVIDED. CLEAN GOWN PROVIDED AND PINK PAD CHANGED. NO OTHER NEEDS AT THIS TIME.
--- NOTE | 2017-06-27 12:52 | NUR ---
TUBE FEEDING RESIDUAL 5ML.
--- NOTE | 2017-06-27 13:39 | NUR ---
PT BACK ON SIMV MODE WITH SETTINGS FOLLOWS R 12, TV 600, FIO2 35%, PEEP 5, PS 10. PROPOFOL INFUSING AT 30MCG/KG/MIN. D5 1/2 + 1 AMP OF BICARB DISCONTINUED. 1/2 NS STARTED AT 30ML/HR PER DR. BAILEY'S ORDERS. WILL CONTINUE TO MONITOR.
--- NOTE | 2017-06-27 14:27 | NUR ---
PT RESTING ON HIS LEFT SIDE. FEET ELEVATED WITH PILLOW. SCD'S ON BOTH LEGS. NO OTHER NEEDS AT THIS TIME. WILL CONTINUE TO MONITOR.
--- NOTE | 2017-06-27 15:00 | NUR ---
PT RESTING COMFORTABLY. REASSESMENT COMPLETED. PT ON SIMV MODE TV 600, R 12, FIO2 35%, PS 10, PEEP 5. WILL CONTINUE TO MONITOR.
--- NOTE | 2017-06-27 19:40 | NUR ---
SHIFT ASSESSMENT COMPLETE. PT OPENS EYES TO SPEECH, UNABLE TO FOLLOW COMMANDS AT THIS TIME. PERRLA, 3 MM, BRISK REACTION TO LIGHT. ETT SIZE 7.5, 25 CM MIDLINE, VENT SETTINGS: SIMV RATE OF 12, TIDAL VOLUME 600, PEEP 5.0, FIO2 35%, PRESSURE SUPPORT 10, O2 SAT 98%. OGT INPLACE, CHECKED WITH AUSCULTATION AND RESIDUAL OF 35 CC. PULMOCARE RUNNING @ 45 ML/HR WITH 25 CC FLUSH Q1H. S1S2 AUDIBLE, SINUS LINDEN ON MONITOR. LUNG SOUNDS CLEAR THROUGHOUT ALL LOBES. BS ACTIVE X4, ROUND AND FLAT, BRUISING NOTED. NELSON CATH INTACT DRAINING YELLOW URINE. SCD'S REMOVED AND SKIN ASSESSED, WNL. RADIAL AND PEDAL PULSES PALP. RT SUBCLAVIAN CVL PATENT, BIOPATCH IN USE, DRESSING CDI. SEE IV FLOWSHEET FOR FLUIDS/DRIPS. CVP MONITOR ZEROED AND READING IS 7. ORAL CARE PROVIDED, REPOSITIONED FOR COMFORT. WILL CONT WITH POC.
--- NOTE | 2017-06-27 21:00 | NUR ---
REPOSITIONED FOR COMFORT. ORAL CARE PROVIDED. PT DOES OPEN EYES TO SPEECH. VSS. NO SIGNS OF ACUTE DISTRESS NOTED. WILL CONT WITH POC.
--- NOTE | 2017-06-27 23:00 | NUR ---
REASSESSMENT COMPLETE. PERRLA, 3 MM, BRISK REACTION TO LIGHT. PT IS UNABLE TO FOLLOW SIMPLE COMMANDS AT THIS TIME. DIPRIVAN TUBING CHANGED AND TF TUBING CHANGED PER PROTOCOL. ORAL CARE PROVIDED. REPOSITIONED FOR COMFORT. WILL CONT WITH POC.
[2017-06-28] VITALS (24 sets, daily range): BP systolic 95–149; BP diastolic 46–73
--- NOTE | 2017-06-28 01:00 | NUR ---
REPOSITIONED FOR COMFORT. ORAL CARE PROVIDED. VSS. NO SIGNS OF ACUTE DISTRESS NOTED. WILL CONT WITH POC.
--- NOTE | 2017-06-28 03:00 | NUR ---
REASSESSMENT COMPLETE. PT IS ABLE TO OPEN EYES TO SPEECH. ORAL CARE PROVIDED. HIS TOP MIDLINE LIP IS SWOLLEN, PUT MOISFTURIZER ON IT. AM LABS DRAWN. VSS. WILL CONT WITH POC.
[2017-06-28 04:15] LABS: BASOPHILS 0.2 % (0-2); EOSINOPHILS 3.3 % (0-7); HEMATOCRIT 30.1 % (42.0-54.0); HEMOGLOBIN 9.3 g/dL (13.5-17.5); LYMPHOCYTES 13.8 % (15-50); MCH 28.7 pg (26.0-34.0); MCHC 30.9 g/dL (31.0-37.0); MCV 92.9 fL (80.0-100.0); MEAN PLATELET VOLUME 10.9 fL (7.4-10.4); MONOCYTES 5.8 % (2-11); NEUTROPHILS 75.9 % (40-80); PLATELET COUNT 113 10x3/uL (130-400); RBC 3.24 10x6/uL (4.20-6.10); WBC 4.9 10x3/uL (4.8-10.8)
[2017-06-28 04:35] LABS: CALC OSMOLALITY 285 mosm/kg (275-300); CALCIUM 8.3 mg/dL (8.5-10.1); CARBON DIOXIDE 27.4 mmol/L (21.0-32.0); CHLORIDE - SERUM 107 mmol/L (98-107); GLUCOSE 121 mg/dL (74-106); MAGNESIUM - SERUM 1.9 mg/dL (1.8-2.4); POTASSIUM - SERUM 4.3 mmol/L (3.5-5.1); SODIUM 141 mmol/L (136-145); UREA NITROGEN 24 mg/dL (7-18); eGFR NON AFRICAN AMERICAN 78 mL/min (90-120)
--- NOTE | 2017-06-28 05:30 | NUR ---
REPOSITIONED FOR COMFORT. ORAL CARE PROVIDED. VSS. SEDATION VACATION WAS A SUCCESS. HE REMAINED CALM. CUT SEDATION DOWN TO 15 MCG/KG/MIN FROM 30 MCG/KG/MIN. WILL CONT WITH POC.
--- NOTE | 2017-06-28 06:53 | NUR ---
INCREASED PROPOFOL TO 20 MCG/KG/MIN DUE TO RR OF 33. WILL CONT TO MONITOR.
--- NOTE | 2017-06-28 07:20 | NUR ---
PT ON VENT WITH PROPOFOL AT 30MCG/KG/MIN ON R-SUBCLAVIAN CVL. CPAP TRIAL TV 600, FIO2 35%, PEEP 5, PS 10, CVP 5. O2 SAT 98%, BP 116/56 MAP 80, HR 68 SYNUS RHYTHM. 1/2 NS INFUSING AT 30ML/HR. S1S2 AUDIBLE, LUNG SOUNDS CLEAR THROUGH OUT. BS ACTIVE X 4. ABDOMEN IS SOFT AND ROUND. RADIAL PULSES +2 EQUAL SHERI. PEDAL PULSES WEAK. SKIN WARM TO TOUCH. FEET SLIGHTLY COOL. NON SKID SOCKS IN PLACE. SCD'S ON BOTH LEGS. BED ALARM ON. BED LOW POSITION, SIDE RAILS UP X 2. NELSON DEPENDENT ON RIGHT SIDE OF BED. YELLOW URINE NOTED. NO OTHER NEEDS AT THIS TIME. WILL CONTINUE TO MONITOR.
--- NOTE | 2017-06-28 08:02 | NUR ---
PROPOFOL TURNED DOWN TO 20MCG/KG/MIN.
--- NOTE | 2017-06-28 09:20 | NUR ---
AM MEDS GIVEN. TUBE FEEDING RESIDUAL 1ML. NO OTHE NEEDS AT THIS TIME.
--- NOTE | 2017-06-28 10:30 | NUR ---
PROPOFOL DECREASED TO 15MCG/KG/MIN. ON CPAP TRIALS AT THIS TIME.
--- NOTE | 2017-06-28 10:53 | NUR ---
SPOKE WITH SISTER WHO IS POA FOR PATIENT. EXPLAINED THAT PT IS ON CPAP TRIAL TO SEE IF WE CAN EXTUBATE TODAY. SISTER SENT LIVING WILL TO US. COPY PLACED IN CHART. SISTER WANTS PT TO BE DNR INCASE HE IS NOT ABLE TO TOLERATE EXTUBATION. NOTIFIED DR. VANN OF PT'S FAMILY WISHES. WILL CALL SISTER IF PATIENT IS EXTUBATED TODAY.
--- NOTE | 2017-06-28 11:11 | NUR ---
PROPOFOL OFF AT THIS TIME. WILL CONTINUE TO MONITOR.
--- NOTE | 2017-06-28 12:02 | NUR ---
LOOSE, YELLOW BM NOTED. PERINEAL CARE PROVIDED. NELSON CARE PROVIDED. NELSON LEAKING. ADDED 1ML OF NS TO CATHETER BALLOON. COMPLETE LINEN CHANGE PROVIDED. PULLED UP AND REPOSITIONED. NO OTHER NEEDS AT THIS TIME. WILL CONTINUE TO MONITOR.
--- NOTE | 2017-06-28 13:43 | NUR ---
PT AWAKE AND ALERT. ON CPAP TRIALS. RESTING COMFORTABLY. SHAKES HEAD WHEN ASKED QUESTIONS. NO OTHER NEEDS AT THIS TIME.
--- NOTE | 2017-06-28 14:00 | NUR ---
BED LINENS CHANGED. REDNESS ON GROIN AREA NOTED. [place]'S CREA APPLIED TO ARE. PT PULLED UP IN BED AND REPOSITIONED TO RIGHT SIDE. ORAL CARE PROVIDED. ORAL AND INLINE SUCTION PROVIDED. NO OTHER NEEDS AT THIS TIME. WILL CONITINUE TO MONITOR.
--- NOTE | 2017-06-28 19:30 | NUR ---
REPORT RECIEVED, SHIFT ASSESSMENT COMPLETE, PT IS SEDATED ON VENT, ON 30% FIO2 WITH 97% O2 SAT. PATENT OGT WITH PULMOCARE INFUSING VIA PUMP, PATENT RIGHT SC CVL...SEE IV FLOW SHEET...ABODMEN IS SOFT AND ROUND WITH ACTIVE BS, PATENT F/C WITH YELLOW UOP, ALL PPP, VSS, WILL CON'T TO MONITOR
--- NOTE | 2017-06-28 21:00 | NUR ---
NO VISITORS AT THIS TIME, WILL CON'T TO MONITOR
--- NOTE | 2017-06-28 23:33 | NUR ---
REASSESSMENT COMPLETE, REPOSITIONED FOR COMFORT, ORAL CARE PROVIDED, VSS, WILL CON'T TO MONITOR
[2017-06-29] VITALS (24 sets, daily range): BP systolic 93–166; BP diastolic 46–85
--- NOTE | 2017-06-29 01:05 | NUR ---
REPOSITIONED FOR COMFORT, ORAL CARE PROVIDED,
--- NOTE | 2017-06-29 03:00 | NUR ---
RAD IN ROOM FOR DAILY CXR
[2017-06-29 03:56] LABS: BASOPHILS 0.3 % (0-2); EOSINOPHILS 3.5 % (0-7); HEMATOCRIT 31.6 % (42.0-54.0); HEMOGLOBIN 9.7 g/dL (13.5-17.5); IMMATURE GRANULOCYTES 0.9 % (0-5); MCH 28.4 pg (26.0-34.0); MCHC 30.7 g/dL (31.0-37.0); MCV 92.4 fL (80.0-100.0); MONOCYTES 5.4 % (2-11); NEUTROPHILS 75.9 % (40-80); PLATELET COUNT 116 10x3/uL (130-400); RBC 3.42 10x6/uL (4.20-6.10); RDW 14.8 % (11.5-14.5); WBC 5.7 10x3/uL (4.8-10.8)
[2017-06-29 04:12] LABS: ANION GAP 11.7 mmol/L (8-16); CALCIUM 8.4 mg/dL (8.5-10.1); CARBON DIOXIDE 28.4 mmol/L (21.0-32.0); CREATININE - SERUM 1.1 mg/dL (0.6-1.3); POTASSIUM - SERUM 4.1 mmol/L (3.5-5.1)
--- NOTE | 2017-06-29 05:15 | NUR ---
REPOSITIONED ON L SIDE. VSS. NO NEW CHANGES AT THIS TIME. ORAL ENDOTRACH CARE ADM. WILL CONTINUE TO MONITOR
--- NOTE | 2017-06-29 09:27 | NUR ---
CVL DRESSING CHANGE. PT ON CPAP TRIAL. SEDATION TURNED OFF AT THIS TIME. PT IS ALERT. WILL CONTINUE TO MONITOR.
--- NOTE | 2017-06-29 10:16 | NUR ---
PT HAD LARGE, YELLOW LOOSE BM. COMPLETE LINEN CHANGE PROVIDED. PERICARE AND NELSON CARE PROVIDED. PT TOLERATED WELL. WILL CONTINUE TO MONITOR.
--- NOTE | 2017-06-29 10:23 | NUR ---
SPOKE ON THE PHONE WITH RADHA VALLES PT'S SISTER.INFORMED HER THAT PT IS ON CPAP TRIALS AND HAS POSSIBILITY OF EXTUBATION TODAY. EXPLAINED TO HER THAT THIS DOES NOT GUARENTEE THAT HE WILL TOLERATE BEING OFF THE VENT. VERIFIED WITH HER THAT SHE WANTED PT TO BE DNR AND TO NOT REINTUBATE IF PT DOES NOT DO WELL AFTER EXTUBATION. SHE STATED THAT SHE MIGHT NOT BE ABLE TO MAKE IT TODAY TO SEE HIM. I WILL KEEP HER INFORMED.
--- NOTE | 2017-06-29 12:16 | NUR ---
PT EXTUBATED AT 1158. ON 4L O2 VIA NASAL CANULA. O2 SAT AT THIS TIME 96%. RR 19. SISTER IN ROOM AT THIS TIME VISTING WITH PATIENT. WRIST RESTRAINTS DISCONTINUED. WILL CONTINUE TO MONITOR.
--- NOTE | 2017-06-29 12:16 | NUR ---
NUTRITION F/U CHART REVIEWED, FAMILY AT BEDSIDE. PT CURRENTLY EXTUBATED. TUBE FEEDS OFF. WILL MONITOR PT PROGRESS. DIET WHEN APPROPRIATE. RD FOLLOWING
--- NOTE | 2017-06-29 13:33 | NUR ---
PT PULLED UP IN BED. SITTING AT 45 DEGREES. HAVING DIFFICULTY TAKING DEEP BREATHS. O2 SAT AT 90%. INCREASED O2 FROM 4L TO 5L VIA NASAL CANULA. WILL CONTINUE TO MONITOR.
--- NOTE | 2017-06-29 13:50 | NUR ---
PT'S COUGH VERY WEAK. NOT COUGHING UP MUCUS. PT IS A LITTLE RESTLESS. NOTIFIED RT. CURRENTLY ON BREATHING TREATMENT. WILL CONTINUE TO MONITOR.
--- NOTE | 2017-06-29 14:59 | NUR ---
DR. UNDERWOOD ASSESSED PT. ORDERED DILAUDID 1 MG IV Q4H PRN FOR AGITATION AND COMFORT. PT ON BIPAP AT THIS TIME. WILL CONTINUE TO MONITOR.
--- NOTE | 2017-06-29 16:57 | NUR ---
SPOKE WITH RADHA VALLES. EXPLAINED TO HER THAT PT WAS ON BIPAP DUE TO HIS DIFFICULTY BREATHING AFTER EXTUBATION. SHE EXPRESSED INTEREST IN MORE INFORMATION ON HOSPICE CARE. SHE WILL BE BY IN THE MORNING.
--- NOTE | 2017-06-29 17:26 | NUR ---
REMOVED BIPAP FOR 3 TO 4 MINUTES TO PROVIDE ORAL CARE. PT COUGH UP THICK WHITE MUCUS. COUGH IS STILL WEAK. PLACED BACK ON BIPAP. NO OTHER NEEDS AT THIS TIME. WILL CONTINUE TO MONITOR.
--- NOTE | 2017-06-29 18:38 | NUR ---
BIPAP REMOVED AND ORAL CARE PROVIDED. NO OTHER NEEDS AT THIS TIME.
--- NOTE | 2017-06-29 19:30 | NUR ---
REPORT RECIEVED, SHIFT ASSESSMENT COMPLETE, PT AROUSES TO VOICE, ON 35% BIPAP WITH 99% O2 SAT. CRACKLES HEARD IN B/L UPPER LOBES, DIMINISHED IN B/L LOWER LOBES, S1S2 CM-NSR, PATENT RIGHT SC CVL...SEE IV FLOW SHEET...ABDOMEN IS SOFT AND ROUND WITH ACTIVE BS, PATENT F/C WITH CONCENTRATED UOP, EDEMA NOTED IN ALL EXTREMETIES, ALL PPP, VSS, WILL CON'T TO MONITOR
--- NOTE | 2017-06-29 21:30 | NUR ---
NO VISITORS AT THIS TIME, WILL CON'T TO MONITOR
--- NOTE | 2017-06-29 23:30 | NUR ---
REASSESSMENT COMPLETE, NO CHANGES NOTED, PT RESTING COMFORTABLY, REPOSITIONED FOR COMFORT,
[2017-06-30] VITALS (23 sets, daily range): BP systolic 109–179; BP diastolic 24–80
--- NOTE | 2017-06-30 01:25 | NUR ---
REPOSITIONED FOR COMFORT, WILL CON'T TO MONITOR
--- NOTE | 2017-06-30 03:30 | NUR ---
RAD IN ROOM FOR DAILY CXR
[2017-06-30 04:34] LABS: BASOPHILS 0.2 % (0-2); EOSINOPHILS 1.8 % (0-7); HEMATOCRIT 30.9 % (42.0-54.0); HEMOGLOBIN 9.4 g/dL (13.5-17.5); IMMATURE GRANULOCYTES 0.8 % (0-5); LYMPHOCYTES 9.5 % (15-50); MCH 28.1 pg (26.0-34.0); MCHC 30.4 g/dL (31.0-37.0); MCV 92.2 fL (80.0-100.0); MEAN PLATELET VOLUME 11.2 fL (7.4-10.4); MONOCYTES 5.1 % (2-11); NEUTROPHILS 82.6 % (40-80); PLATELET COUNT 118 10x3/uL (130-400); RBC 3.35 10x6/uL (4.20-6.10); RDW 14.7 % (11.5-14.5); WBC 6.5 10x3/uL (4.8-10.8)
[2017-06-30 04:45] LABS: CALC OSMOLALITY 287 mosm/kg (275-300); CALCIUM 8.5 mg/dL (8.5-10.1); CHLORIDE - SERUM 108 mmol/L (98-107); GLUCOSE 107 mg/dL (74-106); POTASSIUM - SERUM 4.1 mmol/L (3.5-5.1); SODIUM 143 mmol/L (136-145); UREA NITROGEN 22 mg/dL (7-18); eGFR NON AFRICAN AMERICAN 78 mL/min (90-120)
--- NOTE | 2017-06-30 05:33 | NUR ---
REPOSITIONED FOR COMFORT
--- NOTE | 2017-06-30 10:53 | NUR ---
NELSON CATH LEAKING ON TO LINENS. COMPLETE BATH AND LINEN CHANGE DONE. PLACEMENT VERIFIED AND REPOSITIONED NELSON. NELSON DRAINING W/O PROBLEMS.
--- NOTE | 2017-06-30 14:54 | NUR ---
Rec'd call from JUNIOR Romero - family is requesting hospice consult. Attempted to call sisterZully, via telephone - no answer, no voicemail option. Referral faxed and called to Viviane with [facility]. CM will follow & assist as needed.
--- NOTE | 2017-06-30 17:28 | NUR ---
ASSISTED PT WITH SIP OF WATER AND HE BEGAN TO COUGH. WASHED HAIR AND TURNED. PT LUIS MANUEL WELL. SPOKE TO PT'S SISTER AND SHE STATES THAT THE PT LIVES WITH THE 2 SISTERS AND IS WONDERING ABOUT BRINGING HIM HOME WITH HOSPICE. CM NOTIFIED. SPOKE TO [facility] AND AWAITING CALL BACK.
--- NOTE | 2017-06-30 19:20 | NUR ---
SHIFT ASSESSMENT COMPLETE. REPOSITIONED PT ON R SIDE FOR COMFORT. V/S: HR 66, NORMAL SINUS RHYTHM, RR 29, O2 SAT 97%, BP 136/58, TEMP 98.5 AXILLARY. NC @ 4 L/MIN, RR SHALLOW, CRACKLES HEARD BILAT THROUGHOUT ALL LOBES. ABD IS FLAT WITH BRUSING NOTED, NON TENDER TO TOUCH, BS ACTIVE X4. RADIAL AND PEDAL PULSES PALP. NELSON CATH INTACT DRAINING CLEAR YELLOW URINE. R SUBCLAVIAN CVL INFUSING 1/2 NS @ 30 ML/HR. DRESSING CDI, BIOPATCH IN USE. ORAL CARE PROVIDED. SMALL REDDENED AREA AROUND MARLENE AREA. APPLIED CREAM TO AFFECTED SITE. HE IS CONFUSED AND CANNOT TELL ME HIS NAME, WHERE HE IS OR WHAT DAY IT IS. REORIENTED. HE STATES THAT HE IS NOT IN ANY PAIN AND THAT HE DOES NOT NEED ANYTHING AT THIS TIME. BED ALARM ON, CALL LIGHT IN REACH. WILL CONT TO MONITOR.
--- NOTE | 2017-06-30 21:20 | NUR ---
NO NEEDS AT THIS TIME. ORAL CARE PROVIDED. REPOSITIONED FOR COMFORT. PUT MOISTURIZER ON TOP LIP SCAB. BED IN LOWEST POSITION. WILL CONT TO MONITOR.
--- NOTE | 2017-06-30 22:59 | NUR ---
GAVE REPORT TO ABDULAZIZ ON MED SURG. PACKING UP PT'S ROOM TO XFER. WILL CONT TO MONITOR.
[2017-07-01 15:21] LABS: FUNGUS CULTURE RESULT 1 Candida glabrata (())
[2017-07-20 07:32] LABS: FUNGUS MYCOLOGY CULTURE Final report (())
[2017-08-12 11:18] LABS: ACID FAST CULTURE Negative (()); ACID FAST SMEAR Negative (())
== END 2017-06-30 22:47 | disposition hospice, inpatient (51) | DRG 870 ==
LOC: D.ER 18:32 → D.ICU 23:18
PROVIDERS: Emergency Medicine; Internal Medicine Cardiovascular Disease; Internal Medicine Pulmonary Disease; ADMIT Family Medicine
PROC: 02HV33Z Insertion of Infusion Device into Superior Vena Cava, Percutaneous Approach (ICD-10-PCS; principal; 2017-06-16)
PROC: 5A1955Z Respiratory Ventilation, Greater than 96 Consecutive Hours (ICD-10-PCS; 2017-06-16)
PROC: 0BH17EZ Insertion of Endotracheal Airway into Trachea, Via Natural or Artificial Opening (ICD-10-PCS; 2017-06-16)
PROC: 0B968ZZ Drainage of Right Lower Lobe Bronchus, Via Natural or Artificial Opening Endoscopic (ICD-10-PCS; 2017-06-22)
PROC: 0BH18EZ Insertion of Endotracheal Airway into Trachea, Via Natural or Artificial Opening Endoscopic (ICD-10-PCS; 2017-06-23)
PROC: 5A1955Z Respiratory Ventilation, Greater than 96 Consecutive Hours (ICD-10-PCS; 2017-06-23)
DX: A41.9 Sepsis, unspecified organism (principal); J96.02 Acute respiratory failure with hypercapnia; I50.33 Acute on chronic diastolic (congestive) heart failure; G93.41 Metabolic encephalopathy; J15.6 Pneumonia due to other Gram-negative bacteria; J15.20 Pneumonia due to staphylococcus, unspecified; J96.01 Acute respiratory failure with hypoxia; I13.0 Hypertensive heart and chronic kidney disease with heart failure and stage 1 through stage 4 chronic kidney disease, or unspecified chronic kidney disease; E87.2 Acidosis; J98.11 Atelectasis; T17.590A Other foreign object in bronchus causing asphyxiation, initial encounter; G72.81 Critical illness myopathy; Z66 Do not resuscitate; N18.3 Chronic kidney disease, stage 3 (moderate); E11.22 Type 2 diabetes mellitus with diabetic chronic kidney disease; E11.40 Type 2 diabetes mellitus with diabetic neuropathy, unspecified; I25.10 Atherosclerotic heart disease of native coronary artery without angina pectoris; E03.9 Hypothyroidism, unspecified; G47.33 Obstructive sleep apnea (adult) (pediatric); R00.1 Bradycardia, unspecified; I95.9 Hypotension, unspecified; E86.1 Hypovolemia; D69.6 Thrombocytopenia, unspecified; I34.0 Nonrheumatic mitral (valve) insufficiency; N28.9 Disorder of kidney and ureter, unspecified; Z87.891 Personal history of nicotine dependence; Z95.1 Presence of aortocoronary bypass graft; X58.XXXA Exposure to other specified factors, initial encounter; E87.6 Hypokalemia

== ENCOUNTER 2017-06-30 22:57 | Inpatient (IN) | payer OTHER ==
[~2017-06-30 22:57] MED LIST changes: +TOPROL XL50 MG PO
[2017-07-01] VITALS: BP 148/71
[2017-07-01 01:10] VITALS: BP 148/71
--- NOTE | 2017-07-01 06:53 | NUR ---
ASSESSED AT THE TIME OF ARRIVAL FROM THE ICU UNIT. HE IS NOT EASY TO UNDERSTAND AND HAS MULTIPLE SKIN TEARS ON HIS HAND AND ARMS. HE ALSO HAS A REALLY RED MARLENE AREA AND BLUE OFF COLOR THAT IS ALMOST BROKEN DOWN TO HIS COCCYX. THERE IS CREAM THAT WE ARE PUTTING ON IT. WE ARE TURNING HIMS PER PROTOCOL AND HE HAS A NELSON. WE DID CLEAN UP A LARGE STOOL THIS MORNING AND THERE IS A GAME PRESERVE MANAGER FOR CONTINUIOUS DILAUDID TO KEEP HIM COMFORTABLE. THE BED IS LOW, RAILS UP X'S 2 WITH THE CALL LIGHT AT HAND.
--- NOTE | 2017-07-01 07:05 | NUR ---
REPORT RECEIVED, ASSUMED CARE OF PT. RESTING WITH EYES SHUT, NON-VERBAL, DOES NOT OPEN EYES. R SUBCLAVIAN IV INFUSING ORDERED, ELECTRICAL CONTROLS TECHNICIAN ORDERED, DRSG C/D/I. O2 VIA NASAL CANNULA AT 3 L/MIN. NELSON CATHETER IN PLACE, SECURED TO LEG WITH STAT-LOCK. BED IN LOWEST POSITION, SIDE RAILS UP X 2, CALL LIGHT WITHIN REACH.
[2017-07-01 08:37] VITALS: BP 105/54
--- NOTE | 2017-07-01 12:00 | NUR ---
PT RESTING, NOT RESPONSIVE TO STIMULI. [employer] PRESIDENT AND IV INFUSING ORDERED, DRSG C/D/I.
--- NOTE | 2017-07-01 16:25 | NUR ---
HOSPICE WITH PT, CALLED IN TO ROOM, RESPIRATION X 1, HEART BEAT ABSENT, HOSPICE NURSE CONTACTED DR. LLANES.
== END 2017-07-01 19:40 | DRG 951 ==
LOC: D.MS 22:57
PROVIDERS: ADMIT Legal Medicine
DX: Z51.5 Encounter for palliative care (principal)